=== PATIENT | female | born 1990 | race Caucasian/White ===

== ENCOUNTER 2023-03-09 21:33 | Outpatient (REF) | payer OTHER, SELFPAY ==
[2023-03-14 11:08] LABS: Age Gdln ACOG Testing Note (.); HPV Aptima Negative (Negative); IGP, Aptima HPV, rfx 16/18,45 Note (.)
== END 2023-03-09 21:34 | disposition home or self-care (01) ==
LOC: LAB 21:33
PROVIDERS: PCP Obstetrics & Gynecology; Visit Provider Obstetrics & Gynecology
DX: Z01.419 Encounter for gynecological examination (general) (routine) without abnormal findings (principal)
CPT/HCPCS: 87624; G0145

== ENCOUNTER 2023-03-16 12:02 | Outpatient (OUT) | payer OTHER, SELFPAY ==
--- NOTE | 2023-03-16 11:00 | US_ITS ---
The [address] [address] Patient Name: IDALIA MCKEON MRN: [id number] date: 1990 Sex: F Assigned Patient Location: [place] Current Patient Location: LAB Accession/Order Number: [id number] Exam Date: 03/16/2023 11:00 Report Date: 03/16/2023 20:29 At the request of: CHARLEY DE LA GARZA Procedure: US pelvis w/ transvaginal EXAMINATION: US pelvis w/ transvaginal HISTORY: PELVIC PAIN IUD LOCATION COMPARISON: No relevant comparison available. FINDINGS: Transabdominal and transvaginal images The uterus is normal in size, contour and echotexture measuring 8.7 x 4.5 x 4.8 cm. Anteverted, anteflexed. No focal myometrial mass The endometrium measures 6 mm, normal. Normal position of IUD The right ovary is normal in size, contour and echotexture measuring 2.0 x 1.7 x 3.1 cm. Color flow noted. Doppler could not be obtained The left ovary is normal in size, contour and echotexture measuring 1. 1.9 x 2.1 cm. Color flow. Doppler could not be obtained Limited exam due to patient body habitus IMPRESSION: Normal position of IUD Electronically authenticated by: JARRETT EATON Date: 03/16/2023 20:29
== END 2023-03-16 12:03 | disposition home or self-care (01) ==
LOC: US 12:02
PROVIDERS: PCP Obstetrics & Gynecology; Visit Provider Obstetrics & Gynecology
DX: R10.2 Pelvic and perineal pain (principal)
CPT/HCPCS: 76830; 76856

== ENCOUNTER 2023-05-31 08:22 | Outpatient (OUT) | payer OTHER, SELFPAY | END 2023-05-31 08:23 | disposition home or self-care (01) | PROVIDERS: PCP Nurse Practitioner Family; Visit Provider Obstetrics & Gynecology | DX: Z01.818 Encounter for other preprocedural examination (principal); R10.2 Pelvic and perineal pain; N92.0 Excessive and frequent menstruation with regular cycle; N93.9 Abnormal uterine and vaginal bleeding, unspecified ==

== ENCOUNTER 2023-06-09 06:11 | Day surgery (SDC) | payer OTHER, SELFPAY ==
[2023-05-31 09:10] VITALS: BP 121/81; PULSE 92; RESP 20; TEMP 36.5; O2SAT 97; BMI 56.9
[2023-06-09] VITALS (13 sets, daily range): BP systolic 134–149; BP diastolic 62–99; PULSE 69–95; RESP 8–20; TEMP 36.6–37; O2SAT 96–100; BMI 57.8
[2023-06-09 06:54] LABS: Basophils Percent Auto 0.5 % (0.2-2.0); Eosinophils Absolute Auto 0.2 10^3/uL (0.0-0.7); Eosinophils Percent Auto 3.3 % (0.9-7.0); Hematocrit 40.7 % (36.0-48.0); Hemoglobin 13.5 g/dL (12.0-16.0); Immature Granulocytes Abs Auto 0.02 10^3/uL (0.00-0.03); Immature Granulocytes Pct Auto 0.3 % (0.0-0.5); Lymphocytes Absolute Auto 1.7 10^3/uL (1.2-3.8); Lymphocytes Percent Auto 27.7 % (20.5-60.0); Mean Corpuscular HGB Conc 33.2 g/dL (29.9-35.2); Mean Corpuscular Hemoglobin 30.9 pg (26.7-34.0); Mean Corpuscular Volume 93.1 fL (81.0-99.0); Mean Platelet Volume 9.4 fL (9.5-13.5); Monocytes Absolute Auto 0.5 10^3/uL (0.3-0.8); Neutrophils Absolute Auto 3.6 10^3/uL (1.4-6.5); Neutrophils Percent Auto 60.2 % (43.0-75.0); Platelet Count 226 10^3/uL (150-450); Red Blood Count 4.37 10^6/uL (4.20-5.40); Red Cell Distribution Width 12.6 % (11.0-15.0)
[2023-06-09] MEDS: LACTATED RINGER'S SOLUTION 1,000 ML 50 ML IV (07:11)
[2023-06-09 07:21] LABS: HCG Quantitative <1 mIU/mL
--- NOTE | 2023-06-09 08:23 | PM.ONB ---
Brief Operative Note Date of procedure: 06/09/23 Pre-op diagnosis: aub, retained iud Post-op diagnosis: same as pre-op Procedure: NAME OF PROCEDURE: [ D&c hysteroscopy with removal of retained iud] PROCEDURE: The patient was taken back to the Operating Room where she was prepped and draped in normal sterile fashion after being placed under general anesthesia without difficulty. She was also placed in the dorsal lithotomy position. A weighted speculum was placed in the patient?s vagina. The anterior lip of the cervix was identified and grasped with a single tooth tenaculum. The patient?s uterus was then sounded roughly to [? 8] cm. The patient was then gently dilated using Hegar dilators. The hysteroscope was passed through the patient?s cervix into the uterus. Both ostia were identified. fluffy appearing endometrium. No gross evidence of malignancy, no gross evidence of polyps or fibroids. At that point, gentle curettage was performed until a gritty texture was noted. The endometrial curettings were sent out to pathology. The single tooth tenaculum was then removed from the patient's anterior lip of the cervix where excellent hemostasis was noted. All instruments were removed from the patient?s vagina. The patient tolerated the procedure well. Sponge, lap and needle counts were correct times two. The patient was taken to the Recovery Room in stable condition.Room in stable condition. Polyp forcep was used to remove iud without difficulty Anesthesia: ZAIRA Surgeon: Hernandez Gibson Estimated blood loss (mL): 5 Pathology: other (endometrial currettings) Condition: stable Disposition: floor
[2023-06-09] MEDS: LACTATED RINGER'S SOLUTION 1,000 ML 150 ML IV (08:40)
== END 2023-06-09 09:48 | disposition home or self-care (01) ==
PROVIDERS: PCP Nurse Practitioner Family; Visit Provider Obstetrics & Gynecology
PROC: (CPT 940; principal; 2023-06-09 07:30)
DX: R10.2 Pelvic and perineal pain (principal); N92.0 Excessive and frequent menstruation with regular cycle; N93.9 Abnormal uterine and vaginal bleeding, unspecified; J45.20 Mild intermittent asthma, uncomplicated; E28.2 Polycystic ovarian syndrome; E66.01 Morbid (severe) obesity due to excess calories; Z68.43 Body mass index [BMI] 50.0-59.9, adult; F41.8 Other specified anxiety disorders; Z30.432 Encounter for removal of intrauterine contraceptive device
CPT/HCPCS: 58301; 58558; 36415; 84702; 85025; 88305; J2704

== ENCOUNTER 2024-03-13 19:36 | Outpatient (REF) | payer OTHER, SELFPAY | END 2024-03-13 19:37 | disposition home or self-care (01) | LOC: LAB 19:36 | PROVIDERS: PCP Nurse Practitioner Family; Visit Provider Obstetrics & Gynecology | DX: Z01.419 Encounter for gynecological examination (general) (routine) without abnormal findings (principal) | CPT/HCPCS: 87624; 88175 ==

== ENCOUNTER 2025-03-21 12:28 | Outpatient (REF) | payer OTHER, SELFPAY ==
--- OUTSIDE RECORDS SUMMARY | 2020-02-14 05:08 | XMS_ITS | Continuity of Care Document ---
Author Organization [facility] Address [address] [place] [address] Phone Care Team Providers Care Waste Removalist Name Role Phone Pavlock DO, Max Unavailable Unavailable Allergies, Adverse Reactions, Alerts Substance Reaction Status Criticality risperidone Active No Information Medications Medication Instructions Dosage Effective Dates (start - stop) Status Comments propranolol 20 mg tablet take 1 tablet by oral route 2 times every day 20 MG - Active Monoject Safety Syringes use as directed to administer B12 IM - Active Sprintec (28) 0.25 mg-35 mcg tablet take 1 tablet by oral route every day 1.00 tablet - Active DOXEPIN HCL (unknown strength) take 1 capsule by oral route 3 times every day Not Available - Active viktor Vistaril 25 mg capsule - Active viktor Rexulti 2 mg tablet take 1 tablet by oral route every day 2 MG - Active omeprazole 40 mg capsule,delayed release take 1 capsule by oral route every day before a meal 40 MG - Active albuterol sulfate HFA 90 mcg/actuation Aerosol Inhaler inhale 2 puff by inhalation route every 4 - 6 hours as needed - Active Procedures Procedure Date OFFICE/OUTPATIENT VISIT, EST Resin Composite 3s; Posterior 7 Oral Hygiene Instruction Prophylaxis Adult Oral Hygiene Instruction Periodic Oral Eval Estab Patient 2016 OFFICE/OUTPATIENT VISIT, EST No Charge URINE TEST OFFICE/OUTPATIENT VISIT, EST Resin One Surface; Anterior Resin One Surface; Anterior Resin One Surface; Anterior Oral Hygiene Instruction OFFICE/OUTPATIENT VISIT, NEW Prophylaxis Adult Oral Hygiene Instruction Periodic Oral Eval Estab Patient 2016 Bitewings Four Films High Risk Prophylaxis Adult Periodic Oral Eval Estab Patient 2015 Resin Composite 2s; Posterior 5 Amalgam 4+ Surf Prim/perm Amalgam 2 Surf Prim/perm Limited Oral Eval Resin Composite 2s; Posterior 5 Prophylaxis Adult Intraoral-complete Series (bw) 15 Comp Oral Eval New/estab Patient 2014 OFFICE/OUTPATIENT VISIT, EST URINE TEST URINE TEST OFFICE/OUTPATIENT VISIT, EST URINE TEST OFFICE/OUTPATIENT VISIT, EST URINE TEST Condoms REMOVE INTRAUTERINE DEVICE Condoms INSERT INTRAUTERINE DEVICE Levonorgestrel iu contracept URINE TEST OFFICE/OUTPATIENT VISIT, EST [facility] SPECIMEN HANDLING (GC/CHLAMYDIA) Jun OFFICE/OUTPATIENT VISIT, EST URINE TEST Condoms OFFICE/OUTPATIENT VISIT, EST URINE TEST Condoms NEW FP MEDICAID [facility] SPECIMEN HANDLING (GC/CHLAMYDIA) Nov SMEAR, WET MOUNT, SALINE/INK URINE TEST Condoms Advance Directives Directive Yes / No Effective Date File Name No Information Encounters Encounter Description Practice Location Reason(s) For Visit Diagnoses Date Provider Providers Copied on Encounter [facility], [address] [place] [address], [place], [place], [id number] , [place] tel:[phone] [facility] No Information 8 0 Pavlock DO Max. [address] [place] [address], [id number], [place]. tel:[phone] OFFICE/OUTPA TIENT VISIT, EST [facility], [address] [place] [address], [id number] , [place] tel:[phone] [facility] dizziness (chief complaint)m eds (chief complaint)n euro (chief complaint)n ausea (chief complaint)f atigue (chief complaint) Body mass index (BMI) 50-59.9 , adultDizzinessH eadacheMorbid (severe) obesity due to excess calories 8 Marcelino Vanessa. [address] [place] [address], [id number], [place]. tel:[phone] [facility], [address] [place] [address], [id number] , tel:[phone] [facility] B/P follow up (chief complaint)B melidaton: (chief complaint) Chronic migraine w/o auraFatigueClas s 3 severe obesity due to excess calories without serious comorbidity with body mass index (BMI) of 50.0 to 59.9 in adultBody mass index (bmi) 50-59.9 , adult Mar-3 0- 8 Abiodun Esquivel. [address] [place] [address], [id number], [place]. tel:[phone] [facility], [address] [place] [address], [id number] , [place] tel:[phone] [facility] migraines (chief complaint)b ump (chief complaint)D ennison: (chief complaint) Morbid (severe) obesity due to excess caloriesBody mass index (BMI) 50-59.9 , adultChronic migraine w/o auraElevated blood-pressure reading, w/o diagnosis of htnSebaceous cyst 8 Francesca Sena. [address] [place] [address], [id number], [place]. tel:[phone] [facility], [address] [place], [place], [id number] , [place] tel: [phone] Dental Clinic Encounter for screening for dental disorders 7 [facility] Edward. [address] [place], [address], [place]. tel:[phone] [facility], [address] [place] [address], [id number] , [place] tel: [phone] Dental Clinic prophy (chief complaint) Encounter for screening for dental disorders 7 Carol Burger . [address] [place], [address], [place]. tel:[phone] [facility], [address] [place] [address], [id number] , [place] tel: [phone] [facility] weight management (chief complaint) Body mass index (BMI) 50-59.9 , adultMorbid (severe) obesity due to excess calories 7 Marcelino Vanessa. [address] [place] [address], [id number], [place]. tel:[phone] OFFICE/OUTPA TIENT VISIT, EST [facility], [address] [place], [place], [id number] , [place] tel: [phone] [facility] tired (chief complaint) Body mass index (BMI) 50-59.9 , adultMorbid (severe) obesity due to excess caloriesFatigue 7 Marcelino Vanessa. [address] [place], [place], [id number], [place]. tel:[phone] [facility], [address] [place] [address], [id number] , [place] tel:[phone] Dental Clinic filling (chief complaint) Encounter for screening for dental disorders 7 [facility] [place]. [address] [place], [address], [place]. tel:[phone] OFFICE/OUTPA TIENT VISIT, EST [facility], [address] [place], [place], [id number] , [place] tel: [phone] [facility] abd pain (chief complaint)A dipex (chief complaint) LLQ painEncounter for test 7 Marcelino Vanessa. [address] [place] [address], [id number], [place]. tel:[phone] [facility], [address] [place], [place], [id number] , [place] tel: [phone] [facility] Adipex (chief complaint) Body mass index (BMI) 50-59.9 , adultMorbid (severe) obesity due to excess calories 7 Marcelino Vanessa. [address] [place] [address], [id number], [place]. tel:[phone] [place] [address], [address] [place] [address], [id number] , [place] tel: [phone] Dental Clinic Filling (chief complaint) Encounter for screening for dental disorders 7 Gallo Martinez. [address] [place] [address], [id number], [place]. tel:[phone] OFFICE/OUTPA TIENT VISIT, NEW [facility], [address] [place], [place], [id number] , [place] tel: [phone] [facility] est care (chief complaint)w eight management (chief complaint) Body mass index (BMI) 50-59.9 , adultMorbid (severe) obesity due to excess calories 7 Marcelino Vanessa. [address] [place] [address], [id number], [place]. tel:[phone] [place] [address], [address] [place] [address], [id number] , [place] tel: [phone] Dental Clinic prophy (chief complaint) Encounter for screening for dental disorders 7 Gallo Michaudbo. [address] [place] [address], [id number], [place]. tel:[phone] [facility], [address] [facility] [place], [id number] , [place] tel: [phone] Dental Clinic prophy (chief complaint) Encounter for screening for dental disorders 6 Rose DDS Eduardo. [address] [place], [place], [id number], [place]. tel:[phone] [facility], [address] [place], [place], [id number] , [place] tel: [phone] Dental Clinic [facility] December. [address] [place], [place], [id number], [place]. tel:[phone] [facility], [address] [place] [address], [id number] , [place] tel: [phone] Dental Clinic Dental examination [facility] December. [address] [place], [place], [id number], [place]. tel:[phone] [facility], [address] [place], [place], [id number] , [place] tel: [phone] Dental Clinic Dental examination [facility] December. [address] [place], [place], [id number], [place]. tel:[phone] [facility], [address] [place], [place], [id number] , [place] tel: [phone] Dental Clinic Dental examination [facility] December. [address] [place], [place], [id number], [place]. tel:[phone] [facility], [address] [place], [place], [id number] , [place] tel: [phone] Dental Clinic Dental exam [facility] December. [address] [place], [place], [id number], [place]. tel:[phone] [facility], [address] [place] [address], [id number] , [place] tel:[phone] Dental Clinic Dental exam 5 Tadeo DMD December. [address], [place], [id number], [place]. tel:[phone] OFFICE/OUTPA TIENT VISIT, [facility], [address] [place], [place], [id number] , [place] tel: [phone] [facility] test (chief complaint) examination or test, positive result 3 [place] [facility] Killian. [address] [place], [place], [id number], [place]. tel:[phone] OFFICE/OUTPA TIENT VISIT, [facility], [address] [place], [place], [id number] , [place] tel: [phone] [facility] desires HCG quants (chief complaint) examination or test, negative result 3 Quincy Loco. [address], [place], [id number], [place]. tel:[phone] OFFICE/OUTPA TIENT VISIT, [facility], [address] [place], [place], [id number] , [place] tel: [phone] [facility] test (chief complaint) No Information 3 Fermin THOMAS Shakeel. [address], [place], [id number], [place]. tel:[phone] [facility], [address] [place], [place], [id number] , [place] tel: [phone] [facility] No Information 3 Lamp Beronica. [address] [place], [place], [id number], [place]. tel:[phone] [facility], [address] [place], [place], [id number] , [place] tel: [phone] [facility] No Information 2 Lamp Beronica. [address], [place], [id number], [place]. tel:[phone] OFFICE/OUTPA TIENT VISIT, [facility], [address] [place], [place], [id number] , [place] tel: [phone] [facility] No Information 4-201 2 Lamp Beronica. [address], [place], [id number], [place]. tel:[phone] OFFICE/OUTPA TIENT VISIT, [facility], [address] [place], [place], [id number] , [place] tel: [phone] [facility] No Information 1 2 Quincy Loco. [address], [place], [id number], [place]. tel:[phone] OFFICE/OUTPA TIENT VISIT, [facility], [address] [place], [place], [id number] , [place] tel: [phone] [facility] No Information 2 Visci DO Shakeel. [address] [place], [place], [id number], [place]. tel:[phone] [facility], [address], [place], [id number] , [place] tel: [phone] [facility] No Information 0201 2 Quincy Loco. [address] [place], [place], [id number], [place]. tel:[phone] Family History Family Member Type Diagnosis Age At Onset Father Problem (finding) asthma Father Problem (finding) Alive and well Mother Problem (finding) seizure disorder (Cause Of ) Mother Problem (finding) depression Father Problem (finding) hypercholesterolemia Mother Problem (finding) Obesity Problem (finding) Family history of heart disease Mother Problem (finding) Mental illness Payers Payer name Insurance type Covered republican ID [place](s) [employer] Medicaid [place] [id number] Medicaid Wrap - [employer] [place] [id number] Social History Type Description Quantity Date Captured Comments Alcohol Use Details Unknown Caffeine Use Details Unknown Tobacco Use Status No Information Smoking Status No Information Sex Female Sexual Orientation Straight or heterosexual Gender Identity Female Chief Complaint And Reason For Visit No Information Reason For Referral Reason For Referral No Information Plan Of Treatment Date Type Action Status Goal RLP. Due on due Goal PAP. Due on due Goal Influenza vaccine. Due on due Goal Tdap. Due on due Goal Lifestyle education regardin g diet completed Goal Influenza vaccine. Due on due Goal Tdap. Due on due Goal PAP. Due on due Goal RLP. Due on due Goal Influenza vaccine. Due on due Goal PAP. Due on due Goal Tdap. Due on due Goal RLP. Due on due Goal PAP. Due on due Goal RLP. Due on due Goal Tdap. Due on due Goal Influenza vaccine. Due on due Goal RLP. Due on due Goal Tdap. Due on due Goal PAP. Due on due Goal Influenza vaccine. Due on due Goal Tdap. Due on due Goal PAP. Due on due Goal RLP. Due on due Goal Influenza vaccine. Due on due Goal PAP. Due on due Goal RLP. Due on due Goal Tdap. Due on due Goal Influenza vaccine. Due on due Goal PAP. Due on due Goal Tdap. Due on due Goal RLP. Due on due Goal Influenza vaccine. Due on due Goal Tdap. Due on due Goal RLP. Due on due Goal Influenza vaccine. Due on due Goal PAP. Due on due Goal RLP. Due on due Goal Influenza vaccine. Due on due Goal PAP. Due on due Goal Tdap. Due on due Goal RLP. Due on due Goal Influenza vaccine. Due on due Goal PAP. Due on due Goal Tdap. Due on due Goal PAP. Due on due Goal Tdap. Due on due Goal Influenza vaccine. Due on due Goal RLP. Due on due Goal Depression screening. Due on due Goal Tdap. Due on due Goal PAP. Due on due Goal Influenza vaccine. Due on due Goal Td vaccine. Due on due Goal Tdap. Due on due Goal PAP. Due on due Goal Depression screening. Due on due Goal Tdap. Due on due Goal PAP. Due on due Goal HPV (1st). Due on due Goal Depression screening. Due on due Goal Td vaccine. Due on due Goal Depression screening. Due on due Goal Tdap. Due on due Goal HPV (). Due on due Goal Td vaccine. Due on due Goal Tdap. Due on due Goal Depression screening. Due on due Goal HPV (). Due on due Goal Td vaccine. Due on due Goal Td vaccine. Due on due Goal Depression screening. Due on due Goal HPV (1st). Due on due Goal Tdap. Due on due Goal PAP. Due on due Referral Ordered: Neurology (related to Chronic migraine w/o aura) ordered History Of Present Illness Encounter Date Complaint History Of Prese nt Illness meds Pt states is onl y taking propanolol once daily, pt was educated that we have prescribed it bid since october, pt states her bottle says only once daily. Will call pharmacy to verify they have correct rx. [place] neuro Pt is to see Dr. Leena Sylvester/neuro on 01/25/18. Candelaria nausea Additional infor mation: Pt states every time she eats she gets very nauseous and has had gall bladder out. Candelaria. fatigue Additional infor mation: Pt states she is tired all the time even if she gets 8 hrs of sleep. Labs were never reviewed with pt. Candelaria. dizziness Additional infor mation: Pt states has had dizziness daily x3 weeks. WEnt to ER and was given Antivert with no relief. Candelaria. Abiodun: 27 year old [place] female presents to clinic today to follow-up regarding BP. At last visit on 11/08/17, her BP was 134/91 via the machine and 125/95 manually. Today's BP is 128/87. Patient is a non-smoker. Hx of Cholecystectomy and Left wrist surgery for a ganglion cyst. Patient complains of headaches that have been going on for 2 years. Patient states they have been worsening in intensity and frequency over the past 2 months. Headaches can last all day and she states she is getting them at least 3 times a week and some times every day of the week. Patient points to bilateral temporals and around ethmoid sinuses when asked where her headaches occur. Patient complains of photophobia and phonophobia when these occurs. Patient has been taking propanolol for the past 6 weeks. She was off of this medication for 4 months prior to switchint doctors and being on it for 6 months prior to this. Also denies tinnitus or vision changes with headaches. Patient has also tried Excedrin migraines or Tylenol and states that these sometimes help, but not all of the time. Patient states the headaches come and go for no reasons and can come in the middle of the night when I'm sleeping. Patient states that she is also very fatigued when these headaches occur. She has had a sleep study done before for bariatric surgery that I will be going through and everything was fine with that. Patient started to see a neurologist but states she missed several appointments so she is not sure if she can be referred to one. Patient has not had any scans or additional testing done for these headaches. Denies any auras prior to headaches. Denies any fever, neck stiffness, or extremity numbness, tingling or weakness.Last Pap: 4 years ago. Has appointment in December. Has not had a period in 5 months and had an endometrial biopsy by her OBGYN. Mar-30-2018 B/P follow up Patient here for b/p follow up. Patient states she is still having headaches. Patient is also having breast tenderness and nausea. PT is negative. Patient just started control a little over a month ago. Patient states she has missed some. Patient is also requesting lab work because she is alway tired. Patient states this has been like this for several month. No other issues at this time.Purvi Starks. migraines Pt states has sands d migraines for years and states noticed they have been worsening over the last few months. Pt states used to take propanolol and when she switched drs it never got carried over. Candelaria Francesca: Going through bariatric program but still having cravings. Only surgery was cholecystectomy. Uses Albvuterol for asthma. Also on Rexulti for depression and seeing Dr. Ferreira. She states her last Pap smear was 2013. She is scheduled for an endometrial bx soon with her aerial applicator pilot. She is not a smoker. Propranalol did work for her migraines 20 mgm twice per day. She does not exercise regularly at this time. She is not a smoker. Getting headaches almost every day or every other day. bump Pt c/o bump unde r upper left arm near her armpit, states it was bigger yesterday but she squeezed it and some green drainage came out but its still sore. Pt states thinks she may have one starting on her thigh because it rubs and its sore. Candelaria prophy weight management Patient here t o discuss weight concerns. She is interested in bariatric surgery and has paperwork to be completed from [facility]. PURVI Schneider tired Patient has c/o feeling tired all the time. She was previously on Vitamin B12 injections through her previous provider but stopped since switching providers. RLP completed. -Ramiro LOJA filling continue with nehemias hernández abd pain Patient has c/o abd pain, started 3 days ago. Pain is intermittent, lasting approx 1 minute. Described as sharp and dull. Starts in the middle of her abd and radiates around her sides. States the noticed it while swimming, she stopped swimming which stopped the pain but it came back intermittent throughout the day. Denies any bowel or bladder issues. Patient told physician after nurse left that she had similar pains when she was with her daughter. Patient requesting PT test. Patient has irreg menses and is unsure of LMP, states maybe the month of January. Two tests done for confirmation as very faint positive line showing on both. Patient instructed to follow up with [facility] who states is in [place] for more confirmatory testing. -Ramiro LOJA Adipex Patient also due for Adipex #3 but she wanted to make sure she was able to continue on medication with stomach pain. -Ramiro LOJA Adipex Patient here for Adipex, start 01/22/17 at 295lb. Rx #2 today. Patient states she see's a certified personal trainer 2 times a week and walked twice a week also. -Ramiro LOJA Filling Filling est care Patient here to establish care, she was previously seeing Dr. Willis but would like to switch. She see's [facility] for her depression medication. Denies any concerns at this time. -Ramiro LOJA weight management Patient states she has a hard time losing weight, she just started with a certified personal trainer a few weeks ago. States she just had labs drawn at [facility] approx 1 month ago. A1C 5.3, TSH 3.91. -Ramiro LOJA prophy prophy Functional Status Date Functional Assessmen t No Information Instructions Date Instruction Additional Infor mation Lifestyle education regarding di et Related to Body mass index (BMI) 50-59.9 , adult Giving encouragement to exercise Related to Body mass index (BMI) 50-59.9 , adult Assessments Type Assessment Date No Information Patient Care Teams Name Effective Dates (start - stop) Status Members No Information
--- OUTSIDE RECORDS SUMMARY | 2024-08-28 09:30 | XMS_ITS ---
Author Organization [facility] Address [address] [place] [address] Care Team Providers Care Sales Representative Jewelry Name Role Phone Roxana Toma Primary Care Provider Sarika Youngblood Unavailable [phone] Allergies Allergen (clinical drug ingredient) Drug/Non Drug Allergy documented on EMR Reaction Allergy Type Onset Date Status risperidone Risperdal jittery, throat closure, shaking Drug Allergy Active REASON FOR VISIT checkup-UG Medications Medication SIG (Take, Route, Frequency, Duration) Notes Start Date End Date Status lamoTRIgine 25 MG TAKE 1 TABLET BY [facility] ONCE DAILY UNTIL 07/08/23 & THEN TAKE 2 TABS UNTIL NEXT APPOINTMENT DIRECTED; Duration: 30 Not-Taking Paliperidone ER 6 MG 1 tablet in the mor anne Orally Once a day 04/08/2023 Not-Taking Lexapro 5 MG 1 tablet Orally Once a day; Duration: 30 day(s) 03/02/2023 Not-Sincere ing ARIPiprazole 2 MG TAKE 1 TABLET BY GLEN[facility] TH IN THE MORNING Oral; Duration: 30 Not-Taking Sertraline HCl 100 MG TAKE 1 TABLET BY M OUTH IN THE MORNING Oral; Duration: 30 Not-Taking Lurasidone HCl 40 MG 1 tablet in the gilberto anne with food Orally Once a day; Duration: 30 days 08/09/2023 Not-Takin g Viibryd 20 MG 1 tablet with food Orally Once a day; Duration: 30 day(s) 03/09/2023 Not-Taking Venlafaxine HCl ER 75 MG 1 capsule with food Orally Once a day; Duration: 30 day(s) 03/06/2024 Not-Taking Phentermine HCl 37.5 MG 1 tablet before breakfast Orally Once a day; Duration: 30 days 01/09/2024 Not-Takin g Magnesium Oxide Not- Taking hydrOXYzine HCl 25 MG 1 tablet as needed Orally 3 times a day as needed for anxiety; Duration: 30 days 03/13/2024 Not-Taking Invega Sustenna 234 MG/1.5ML as directed Intramuscular once a maonth 08/30/2023 Not-Taking Venlafaxine HCl ER 75 MG 1 capsule with food Orally Once a day; Duration: 30 days 01/11/2024 Not-Taking DULoxetine HCl 30 MG 1 capsule Orally On ce a day; Duration: 30 days 03/28/2024 Not-Takin g busPIRone HCl 10 MG 1 tablet Orally Twic a day; Duration: 30 days Not-Takin g Omeprazole 40 MG TAKE 1 CAPSULE BY [facility] ONCE DAILY 30 MINUTES BEFORE MORNING MEAL; Duration: 60 Not-Taking FLUoxetine HCl 40 MG 1 capsule Orally On ce a day; Duration: 30 days 04/03/2024 Not-Takin g OLANZapine 5 MG 1 tablet every night and once a day as needed for anxiety Orally as directed; Duration: 30 days 07/24/2024 Active Multi Complete - as directed Orally Not-Taking Pulmicort Flexhaler Not-Taking Ventolin HFA 108 (90 Base) MCG/ACT 2 puffs as needed Inhalation every 4 hrs 06/25/2015 Active Invega Sustenna 234 MG/1.5ML 1.5 mL Intramuscular; Duration: 30 days 07/24/2024 Active Encounters Encounter Location Date Provider Diagnosis [facility] [address] [place] [address] 08/28/2024 Tayla Tom Plan Of Treatment No Information Progress Notes * IDALIA MCKEONDOB:[birth year] (35 yo F)Acc No.[id number]:08/28/2024 Progress Notes Patient: Rachael PIKEIDALIA Appointment Provider: Allen TOM DO :1990 A ge:34 Y S ex:Female Date:08/28/2024 Address:[address] [place], [place] [id number] Check In:01:27 PM EST Subjective: * Chief Complaints: * 1 . checkup-UG. * Medical History: A sthma, Hypertension, Chronic depression, Anxiety disorder. * Surgical History: c yst removal-wrist x2 , cholecystectomy . * [place]ization/Major Diagno stic [place] [facility] [place] , Do flower . * Family History: F ather: , asthma. M other: alive, Mom adopted, had paranoid schizophrenia. P aternal Grand Father: [place]. 2 brother(s) - healthy. 1 son(s) , 2 daughter(s) - healthy. . * Social History: N o smoking, no alcohol, no illicit drugs. * Medications: T aking Ventolin HFA 108 (90 Base) MCG/ACT Aerosol Solution 2 puffs as needed Inhalation every 4 hrs , Taking Invega Sustenna 234 MG/1.5ML Suspension Prefilled Syringe 1.5 mL Intramuscular , Taking OLANZapine 5 MG Tablet 1 tablet every night and once a day as needed for anxiety Orally as directed , Not-Taking/PRN Multi Complete - Capsule as directed Orally , Not-Taking/PRN Pulmicort Flexhaler , Not-Taking/PRN Omeprazole 40 MG Capsule Delayed Release TAKE 1 CAPSULE BY MOUTH ONCE DAILY 30 MINUTES BEFORE MORNING MEAL , Not-Taking/PRN FLUoxetine HCl 40 MG Capsule 1 capsule Orally Once a day , Not-Taking/PRN hydrOXYzine HCl 25 MG Tablet 1 tablet as needed Orally 3 times a day as needed for anxiety , Not-Taking/PRN Invega Sustenna 234 MG/1.5ML Suspension Prefilled Syringe as directed Intramuscular once a maonth , Not-Taking/PRN Venlafaxine HCl ER 75 MG Capsule Extended Release 24 Hour 1 capsule with food Orally Once a day , Not-Taking/PRN DULoxetine HCl 30 MG Capsule Delayed Release Particles 1 capsule Orally Once a day , Not-Taking/PRN busPIRone HCl 10 MG Tablet 1 tablet Orally Twice a day , Not-Taking/PRN Venlafaxine HCl ER 75 MG Capsule Extended Release 24 Hour 1 capsule with food Orally Once a day , Not-Taking/PRN Phentermine HCl 37.5 MG Tablet 1 tablet before breakfast Orally Once a day , Not-Taking/PRN Magnesium Oxide , Not-Taking/PRN Lurasidone HCl 40 MG Tablet 1 tablet in the evening with food Orally Once a day , Not-Taking/PRN Viibryd 20 MG Tablet 1 tablet with food Orally Once a day , Not-Taking/PRN lamoTRIgine 25 MG Tablet TAKE 1 TABLET BY MOUTH ONCE DAILY UNTIL 07/08/23 & THEN TAKE 2 TABS UNTIL NEXT APPOINTMENT DIRECTED , Not-Taking/PRN Paliperidone ER 6 MG Tablet Extended Release 24 Hour 1 tablet in the morning Orally Once a day , Not-Taking/PRN Lexapro 5 MG Tablet 1 tablet Orally Once a day , Not-Taking/PRN ARIPiprazole 2 MG Tablet TAKE 1 TABLET BY MOUTH IN THE MORNING Oral , Not-Taking/PRN Sertraline HCl 100 MG Tablet TAKE 1 TABLET BY MOUTH IN THE MORNING Oral * Allergies: R isperdal: jittery, throat closure, shaking - Allergy. Objective: * Vitals: Assessment: Plan: * Treatment: * Images: * Electronic signature of Samina Tom DO on 03/21/2025 at 09:02 AM EDT Sign off status: Pending * Appointment Provider: Allen TOM DO Date: 10/29/2023 Generated for Mohini aguilar/Teresa/Talyaitting on: 0 03/21/2025 09:02 AM EDT
--- OUTSIDE RECORDS SUMMARY | 2024-12-11 10:14 | XMS_ITS ---
Author Organization [facility] [place] Address [address] [place] [address] Care Team Providers Care Advanced Registered Nurse Name Role Phone Jeanmarie Gutierrez DO Primary Care Provider Unavail able Eliud Dinesh Unavailable [phone] REASON FOR VISIT Pulmonary Clearance-[facility] Encounters Encounter Location Date Provider Diagnosis [facility] [address] [place] [address] 12/11/2024 Dinesh Kline Plan Of Treatment Next Appt Details Provider Name:Dinesh Kline, 02/04/2026 09:30:00 AM, [address] [place], [address], Progress Notes * Idalia KAM MDOB: (34 yo F)Acc No.[id number]:12/11/2024 Patient: Rachael Idalia PIKE :1990 A ge:34 Y S ex:Female Address:[address] [place] [address], [phone] * true * Date: Generated for Printi ng/Faxing/eTransmitting on: 0 03/21/2025 12:37 PM EDT
--- OUTSIDE RECORDS SUMMARY | 2025-01-02 05:00 | XMS_ITS ---
Author Organization [facility] [place] Address [address] [place] [address] Care Team Providers [employer] Name Role Phone LynnvilleJeanmarie pineda DO Primary Care Provider Unavail able Dinesh Kline Unavailable [phone] Allergies Allergen (clinical drug ingredient) Drug/Non Drug Allergy documented on EMR Reaction Allergy Type Onset Date Status risperidone RisperDAL Numbness Drug Allergy Activ e REASON FOR VISIT Pulmonary Clearance/HALEIGH/Asthma Medications Medication SIG (Take, Route, Fr equency, Duration) Notes Start Date End Date Status Mirena (52 MG) 20 MCG/DAY as directed Intrauterine Act justice Omeprazole 40 MG 1 capsule 30 minutes before morning meal Orally Once a day Active Vitamin D3 50 MCG (2000 UT) 1 capsule Orally Once a day Active Ventolin HFA 108 (90 Base) MCG/ACT 2 puffs as needed for SOB Inhalation every 4 hrs for 30 days Active FLUoxetine HCl 20 MG Oral for 30 Days Active Invega Sustenna 234 MG/1.5ML INJECT 234MG INTRAMUSCULARLY EVERY 30 DAYS Intramuscular for 30 Days Active metFORMIN HCl ER 500 MG TAKE 1 TABLET BY MOUTH IN THE EVENING WITH MEALS -- DO NOT CRUSH, CHEW OR SPLIT Oral for 30 Days Active Social History Tobacco Use: Social History Observation Description Date Details (start date - stop date) Never Smoker NA - NA Tobacco Control (Standard) Question Answer Notes Tobacco use: Nonsmoker Vital Signs Temperature 96.8 degrees Fahrenheit 01/03/20 25 Blood pressure systolic 136 mm Hg 01/03/20 25 Blood pressure diastolic 92 mm Hg 025 Heart Rate 66 /min 01/02/2025 Respiratory Rate 18 /min 01/02/2025 Height 64 in 01/02/2025 Weight 331.2 lbs 01/02/2025 BMI 56.84 kg/m2 01/02/2025 Oximetry 96 % 01/02/2025 Encounters Encounter Location Date Provider Diagnosis Pulmonary Medicine [address] [address] 01/02/2025 Dinesh Eliud Encounter for preprocedural respiratory examination Z01.811 ; Obstructive sleep apnea G47.33 ; Mild persistent asthma, uncomplicated J45.30 and Obesity, morbid, BMI 50 or higher E66.01 Assessments Encounter Date Diagnosis (ICD Code) Assessment Notes Treatment Notes Treatment Clinical Notes Section Notes 01/02/2025 Encounter for preprocedural respiratory examination (ICD-10 - Z01.811) Patient in beginning stages of weight loss surgery with Dr. Eduarda Hugo, either gastric sleeve vs. Claudia-en-Y. She is seeking pulmonary pre-operative evaluation. From an asthma standpoint, she is well controlled which I do not anticipate any issues from that standpoint. However, she is simply not using her CPAP. PAP compliance is typically a requirement for weight loss surgery, which this patient has not made any effort over the past 8 months to do, even after I adjusted pressures for her. She also has history of non-compliance with F/U (2 no shows). Explained that compliance is vital for success, as she will have to adopt an entirely new lifestyle - if she cannot F/U with PAP therapy, or even office visits, this can be construed as a sign she will not be compliant with the F/U necessary after weight loss surgery. Given lack of effort using CPAP, I cannot state she is cleared for an elective surgery such as this. She was given 1 month to demonstrate compliance with her CPAP with strategies provided to improve comfort with the mask, etc. She will F/U in 1 month to review compliance - if she is not compliant, then I cannot in good conscience clear her for this surgery. 01/02/2025 Obstructive sleep apnea (ICD-10 - G47.33) Wxpi-zu-zsaf encounter performed with the patient to document continued need for PAP therapy. [place]PSG 07/14/2021 [place] [place] - AHI: 8.7; REM-AHI: 47.6 -Split-night 02/07/2023 ([facility]) - AHI: 18 -Compliance reviewed 90 days prior to 12/24/2024-Total days used: ZERO-Total of all days >4 hours of use: N/A-Current mode & pressures: AirSense 11 Autoset auto-CPAP [id number] AHI: N/A-Air leak 95th percentile: N/A-Mask/harness fitting: States there is a leak when laying on side-Sleep quality: Poor, as she is not using PAP-Daytime hypersomnolence: Present-Recommen dations: Persistently non-compliant with CPAP, even after I adjusted the pressures last visit (05/08/2024) from straight CPAP [id number] to auto-CPAP [id number]... She no showed' for her 3-month F/U compliance on 08/08/2024, which we ultimately had to send a letter to her home notifying her of the missed appointment. We only heard from her on 12/11/2024 when she was seeking pulmonary clearance for her gastric weight loss procedure. She was asked at that time if she were using her CPAP, which she answered to my MA Not really. Even after that conversation, she did not restart the CPAP. She claims that she began using the CPAP over the past 2 days and said she did okay on it... I cannot adjust the pressures further at this point. She complains about the mask, not becoming acclimated to it. I suggested the patient wear the CPAP during the daytime while awake, such as when watching TV. That way, she can see how it feels, adjust straps as necessary, etc. instead of fighting it at bedtime. She has both full facial and nasal pillows. She is to try the mask which fits better and use the PAP. Discussed the tubing has a lot of length and slack, so she should not use fear of knocking off the night stand as a major concern. F/U 1 month to document compliance. 01/02/2025 Mild persistent asthma, uncomplicated (ICD-10 - J45.30) She has been doing well off Pulmicort over the past ~year. Rare albuterol use. No need to restart a maintenance inhaler at this time. 01/02/2025 Obesity, morbid, BMI 50 or higher (ICD-10 - E66.01) Patient is looking into weight loss surgery (gastric sleeve vs. Claudia-en-Y). Plan Of Treatment Medication Medication Name Sig Start Date Stop Date Notes Ventolin HFA 108 (90 Base) MCG/ACT 2 puffs as needed for SOB Inhalation every 4 hrs for 30 days Treatment Notes Assessment Notes Encounter for preprocedural respiratory examination Patient in beginning stages of weight loss surgery with Dr. Eduarda Hugo, either gastric sleeve vs. Claudia-en-Y. She is seeking pulmonary pre-operative evaluation. From an asthma standpoint, she is well controlled which I do not anticipate any issues from that standpoint. However, she is simply not using her CPAP. PAP compliance is typically a requirement for weight loss surgery, which this patient has not made any effort over the past 8 months to do, even after I adjusted pressures for her. She also has history of non-compliance with F/U (2 no shows). Explained that compliance is vital for success, as she will have to adopt an entirely new lifestyle - if she cannot F/U with PAP therapy, or even office visits, this can be construed as a sign she will not be compliant with the F/U necessary after weight loss surgery. Given lack of effort using CPAP, I cannot state she is cleared for an elective surgery such as this. She was given 1 month to demonstrate compliance with her CPAP with strategies provided to improve comfort with the mask, etc. She will F/U in 1 month to review compliance - if she is not compliant, then I cannot in good conscience clear her for this surgery. Obstructive sleep apnea Rxqb-yz-zeuz encounter performed with the patient to document continued need for PAP therapy. -PSG 07/14/2021 ([facility] [place] - AHI: 8.7; REM-AHI: 47.6 -Split-night 02/07/2023 ([facility]) - AHI: 18 -Compliance reviewed 90 days prior to 12/24/2024-Total days used: ZERO-Total of all days >4 hours of use: N/A-Current mode & pressures: AirSense 11 Autoset auto-CPAP [id number] AHI: N/A-Air leak 95th percentile: N/A-Mask/harness fitting: States there is a leak when laying on side-Sleep quality: Poor, as she is not using PAP-Daytime hypersomnolence: Present-Recommendations: Persistently non-compliant with CPAP, even after I adjusted the pressures last visit (05/08/2024) from straight CPAP [id number] to auto-CPAP [id number]... She no showed' for her 3-month F/U compliance on 08/08/2024, which we ultimately had to send a letter to her home notifying her of the missed appointment. We only heard from her on 12/11/2024 when she was seeking pulmonary clearance for her gastric weight loss procedure. She was asked at that time if she were using her CPAP, which she answered to my MA Not really. Even after that conversation, she did not restart the CPAP. She claims that she began using the CPAP over the past 2 days and said she did okay on it... I cannot adjust the pressures further at this point. She complains about the mask, not becoming acclimated to it. I suggested the patient wear the CPAP during the daytime while awake, such as when watching TV. That way, she can see how it feels, adjust straps as necessary, etc. instead of fighting it at bedtime. She has both full facial and nasal pillows. She is to try the mask which fits better and use the PAP. Discussed the tubing has a lot of length and slack, so she should not use fear of knocking off the night stand as a major concern. F/U 1 month to document compliance. Mild persistent asthma, uncomplicated She has been doing well off Pulmicort over the past ~year. Rare albuterol use. No need to restart a maintenance inhaler at this time. Obesity, morbid, BMI 50 or higher Patient is looking into weight loss surgery (gastric sleeve vs. Claudia-en-Y). Next Appt Details Follow Up: 1 Month, Reason: HALEIGH - CPAP compliance Provider Name:Dinesh Kline, 02/04/2026 09:30:00 AM, [address] [place], [address], Procedure Notes * Category Sub-Category Detail Notes 16 Channel overnight polysomonography (PSG) Supervised 02/08/2023 - [facility] (split-night )-AHI 181 - [facility]-AHI 8.7-OES-ybncww AHI 47.6 PFT Data: 06/10/2022-FEV1/F VC: 86%-FEV1: 85%-FVC: 82%-No bronchodilator administered-RV: 78%-T%-DLCO: 123%-Flow-volume loop: Mild restriction03/21/2020-FEV1/FVC: 89%-FEV1: 85%-FVC: 81%-Bronchodilator response: Only positive in SCZ27-36%-RV: 98%-T%-DLCO: 114%07/16/2015-FEV1/FVC: 81% -FEV1: 83%-FVC: 82%-QWK45-90%: 75%-Bronchodilator response: None-RV: 78%-T%-DLCO: 85% Progress Notes * Idalia KAM MDOB: (34 yo F)Acc No.[id number]:01/02/2025 Follow Up Patient: Rachael PIKE Chazehra Felipe Provider: Jean Pierre Kline DO :1990 A ge:34 Y S ex:Female Date:01/02/2025 Address:[address] [place] [id number] Pcp:Jeanmarie Gutierrez, Check In:09:13 AM ESTCheck O ut:09:11 AM EST Subjective: * Chief Complaints: * P ulmonary Clearance/HALEIGH/Asthma * HPI: E pworth Sleepiness Scale: PRE-OPERATIVE PULMONARY EVALUATION Patient is here for pre-op pulm eval for proposed gastric surgery. She is seeing Dr. Eduarda Hugo @ [facility]. Proposed surgery is gastric sleeve vs. Claudia-en-Y. P atient is seen here for asthma and HALEIGH. Last visit here was 05/08/2024. Asthma: Patient's asthma has been well-controlled, remaining off her ICS inhaler for some time now.� Albuterol use is rare - has only required it 1-2 times since last visit. No urgent care/ER visits for her breathing. HALEIGH: She has an issue with compliance, both with F/U ( no showed for prior visit 08/08/2024 and 12/28/2022) and PAP use. Prior visit 05/08/2024, she had z erocompliance with her CPAP. She complained that her mask did not fit, and was concerned about the pressures (straight CPAP [id number]). I changed her settings to an auto-CPAP [id number]. She stated that she did not try the CPAP after the changes I made. This is confirmed from compliance data from 12/24/2024 - z lisetteo radha ompliance for the 90 days prior to this date. She states it is the mask now, I just cannot get used to it. She then says she is concerned if she tosses and turns, she will pull the PAP off the night stand by her bed. I educated the patient that the tubing is quite long with enough slack to account for movement during sleep. MA Intake Comments:. [place] Sleepiness Scale C khadijah of dozing while sitting and reading:�2 - Moderate Chance C khadijah of dozing while watching TV: 2 - Moderate Chance C khadijah of dozing while sitting in a public place: 0 - Never C khadijah of dozing as a passenger in a car for an hour without a break: 0 - Never C khadijah of dozing while lying down in the afternoon to rest: 3 - High Chance C khadijah of dozing while sitting and talking to someone: 0 - Never C khadijah of dozing while sitting quietly after lunch: 1 - Slight Chance C khadijah of dozing in a stopped car for a few minutes in traffic: 0 - Never T OTAL SCORE: 8 Patient presents for Pulmonary Clearance prior to a gastric bypass by Dr.Sarah Hugo at [facility]. Patient is not currently scheduled for a date at this time. Patient admits to not being compliant with her PAP. DME:[facility]. Patient has a hard time with her mask. Patient denies any issues with her breathing.today. Patient reports rare albuterol use. * ROS: G eneral/Constitutional: Fever or sweats d enies. C hange of appetite d enies. C hills d enies. W eight Change d enies. H EENT: Dry mouth d enies. S ore throat d enies. O ral Ulcers d enies. P ost Nasal Drip D enies. C ongestion D enies. H oarseness�Denies. C ardiovascular: Tachycardia d enies. C hest pain d enies. P alpitations d enies. R espiratory: Chest tightness d enies. P leurisy D enies. D yspnea d enies. C ough d enies. H emoptysis d enies. W heezing d enies.� G astrointestinal: Acid Reflux/GERD/Heartburn d enies. D ysphagia d enies. M usculoskeletal: Arthralgias/joint pain D enies. S kin: Easy bruising d enies. R caleb d enies. � N eurologic: Seizures d enies. T remor d enies. H ematology: Abnormal Bleeding d enies. P sychiatric: Anxiety d enies. * Active Problem List J45.30 Mild persistent asth ma, uncomplicated Modified On:05/10/2023/U Status:confirmed E66.01 Morbid obesity Modified On:05/10/2023U Status:confirmed G47.33 Obstructive sleep ap blaine Modified On:05/10/2023/U Status:confirmed E66.01 Obesity, morbid, BMI 50 or higher Modified On:05/10/2023U Status:confirmed * Medical History: * Surgical History: C holecystectomy dilatation and curettage loop electrosurgical excision procedure (LEEP) Right Foot Surgery carpal tunnel release Left Heel Spur * Hospitalization/Major Diagno stic Procedure: D enies Past Hospitalization * Family History: F ather: asthma, blood clot, asthma, diagnosed with Unspecified essential hypertension. M other: bipolar, depression, diagnosed with Unspecified essential hypertension. P aternal Grandmother: asthma, diagnosed with Other malignant neoplasm of unspecified site, Diabetes mellitus without mention of complication, type II or unspecified type, not stated as uncontrolled, Unspecified essential hypertension. M aternal Grandfather: asthma, diagnosed with Unspecified essential hypertension, Unspecified heart disease. M aternal Grandmother: asthma, diagnosed with Unspecified essential hypertension. P aternal Grandfather: diagnosed with Unspecified heart disease. * Social History: T obacco Use: T obacco Control (Standard) T obacco use: N onsmoker Electronic Cigarette use C urrent user N o M iscellaneous: C affeine: more than 4 cups per day. Occupation O ccupation: W orks full-time Hotel Pets: Rabbit. D rugs/Alcohol: D rugs H ave you used drugs other than those for medical reasons in the past 12 months? N o D oes the Patient have a History of Drug Abuse in the Past? N o Caffeine I ntake: m ore than 4 cups per day Soda Do you drink alcohol?: Yes, Socially. Do you smoke marijuana?: Denies. * Medications: T akingFLUoxetine HCl 20 MG Capsule Oral Invega Sustenna(Paliperidone Palmitate ER) 234 MG/1.5ML Suspension Prefilled Syringe INJECT 234MG INTRAMUSCULARLY EVERY 30 DAYS Intramuscular metFORMIN HCl ER 500 MG Tablet Extended Release 24 Hour TAKE 1 TABLET BY MOUTH IN THE EVENING WITH MEALS -- DO NOT CRUSH, CHEW OR SPLIT Oral Mirena (52 MG)(Levonorgestrel) 20 MCG/DAY Intrauterine Device as directed Intrauterine Omeprazole 40 MG Capsule Delayed Release 1 capsule 30 minutes before morning meal Orally Once a day Ventolin HFA(Albuterol Sulfate HFA) 108 (90 Base) MCG/ACT Aerosol Solution 2 puffs as needed for SOB Inhalation every 4 hrs Vitamin D3 50 MCG (1999 UT) Capsule 1 capsule Orally Once a day Taking FLUoxetine HCl 20 MG Capsule Oral Taking Invega Sustenna(Paliperidone Palmitate ER) 234 MG/1.5ML Suspension Prefilled Syringe INJECT 234MG INTRAMUSCULARLY EVERY 30 DAYS Intramuscular Taking metFORMIN HCl ER 500 MG Tablet Extended Release 24 Hour TAKE 1 TABLET BY MOUTH IN THE EVENING WITH MEALS -- DO NOT CRUSH, CHEW OR SPLIT Oral Taking Mirena (52 MG)(Levonorgestrel) 20 MCG/DAY Intrauterine Device as directed Intrauterine Taking Omeprazole 40 MG Capsule Delayed Release 1 capsule 30 minutes before morning meal Orally Once a day Taking Ventolin HFA(Albuterol Sulfate HFA) 108 (90 Base) MCG/ACT Aerosol Solution 2 puffs as needed for SOB Inhalation every 4 hrs Taking Vitamin D3 50 MCG (2000 UT) Capsule 1 capsule Orally Once a day DiscontinuedbusPIRone HCl 7.5 MG Tablet Oral LaMICtal(lamoTRIgine) 150 MG Tablet 1 tablet Orally metFORMIN HCl ER 500 MG Tablet Extended Release 24 Hour Oral Paliperidone ER 6 MG Tablet Extended Release 24 Hour TAKE 1 TABLET BY MOUTH IN THE MORNING FOR 30 DAYS Oral Vilazodone HCl 20 MG Tablet Oral Vitamin B12 1000 MCG Tablet Extended Release 1 tablet Orally Once a day Medication List reviewed and reconciled with the patientDiscontinued busPIRone HCl 7.5 MG Tablet Oral Discontinued LaMICtal(lamoTRIgine) 150 MG Tablet 1 tablet Orally Discontinued metFORMIN HCl ER 500 MG Tablet Extended Release 24 Hour Oral Discontinued Paliperidone ER 6 MG Tablet Extended Release 24 Hour TAKE 1 TABLET BY MOUTH IN THE MORNING FOR 30 DAYS Oral Discontinued Vilazodone HCl 20 MG Tablet Oral Discontinued Vitamin B12 1000 MCG Tablet Extended Release 1 tablet Orally Once a day Medication List reviewed and reconciled with the patient * Allergies: R isperDAL: Numbness - Allergyno[Allergies Verified] Objective: * Vitals: W t:331.2lbs, Ht: 64 in, BP:sittin/92mm Hg, Temp:Forehead:96.8F, HR:66/min, RR:18/min, BMI:56.84Index, Oxygen sat %:Room Air:96%, Ht-cm: 162.56 cm, Wt-k.23 kg. * Examination: E xam: GENERAL APPEARANCE: D oes not appear to be in any distress.� Morbidly obese. Skin N ormal. Mouth P ink and moist. Oropharynx/Tongue M allampati Class III. Macroglossia., Tongue ridging. Trachea M idline. Chest N ormal. Respiratory Normal M ovements, E ffort N ormal. Auscultation B reath sounds remain diminished but clear without wheezes, crackles, or rhonchi. Cardiac R egular rate and rhythm. Gastrointestinal E xcessive abdominal adiposity. Vascular N o edema. Musculoskeletal N ormal posture. Neurological F ocal, intact. Psychiatric A lert and oriented x3. Mentation/Cognition N ormal. Assessment: * Assessment: 1. E ncounter for preprocedural respiratory examination - Z01.811 (Primary) 2 .�Obstructive sleep apnea - G47.33 3 . M ild persistent asthma, uncomplicated - J45.30 4 . O besity, morbid, BMI 50 or higher - E66.01 Plan: * Treatment: 2. O bstructive sleep apnea Notes: Eyrq-vs-bgan encounter performed with the patient to document continued need for PAP therapy. -PSG 07/14/2021 ([facility] [place] - AHI: 8.7; REM-AHI: 47.6 -Split-night 02/07/2023 ([facility]) - AHI: 18 -Compliance reviewed 90 days prior to 12/24/2024-Total days used:ZERO-Total of all days >4 hours of use:N/A-Current mode & pressures: AirSense 11 Autoset auto-CPAP [id number] AHI:N/A-Air leak 95th percentile:N/A-Mask/harness fitting: States there is a leak when laying on side-Sleep quality: Poor, as she is not using PAP-Daytime hypersomnolence: Present-Recommendations: Persistently non-compliant with CPAP, even after I adjusted the pressures last visit (05/08/2024) from straight CPAP [id number] to auto-CPAP [id number]... She no showed' for her 3-month F/U compliance on 08/08/2024, which we ultimately had to send a letter to her home notifying her of the missed appointment. We only heard from her on 12/11/2024 when she was seeking pulmonary clearance for her gastric weight loss procedure. She was asked at that time if she were using her CPAP, which she answered to my MA Not really. Even after that conversation, she did not restart the CPAP. She claims that she began using the CPAP over the past 2 days and said she did okay on it... I cannot adjust the pressures further at this point. She complains about the mask, not becoming acclimated to it. I suggested the patient wear the CPAP during the daytime while awake, such as when watching TV. That way, she can see how it feels, adjust straps as necessary, etc. instead of fighting it at bedtime. She has both full facial and nasal pillows. She is to try the mask which fits better and use the PAP. Discussed the tubing has a lot of length and slack, so she should not use fear of knocking off the night stand as a major concern. F/U 1 month to document compliance. 3. M ild persistent asthma, uncomplicated Refill Ventolin HFA Aerosol Solution, 108 (90 Base) MCG/ACT, 2 puffs as needed for SOB, Inhalation, every 4 hrs, 30 days, 1 each, Refills 12. Notes: She has been doing well off Pulmicort over the past ~year. Rare albuterol use. No need to restart a maintenance inhaler at this time. 4. O besity, morbid, BMI 50 or higher Notes: Patient is looking into weight loss surgery (gastric sleeve vs. Claudia-en-Y). * Procedures: 1 6 Channel overnight polysomonography (PSG): Supervised 02/08/2023 - [facility] (split-night) -AHI 18 07/14/2021 [place] [facility] [place]AHI 8.7 -REM-supine AHI 47.6. P FT: Data: 06/10/2022 -FEV1/FVC: 86% -FEV1: 85% -FVC: 82% -No bronchodilator administered -RV: 78% -T% -DLCO: 123% -Flow-volume loop: Mild restriction 03/21/2020 -FEV1/FVC: 89% -FEV1: 85% -FVC: 81% -Bronchodilator response: Only positive in MEE03-29% -RV: 98% -T% -DLCO: 114% 07/16/2015 -FEV1/FVC: 81% -FEV1: 83% -FVC: 82% -IDX29-19%: 75% -Bronchodilator response: None -RV: 78% -T% -DLCO: 85% . * Procedure Codes: * Preventive Medicine: COVID Vaccination: H as patient had COVID Vaccination? COVID Vaccination Y es 02/18/2021 Immunization Status: P neumovacc P t Refused. I nfluenza P t Refused. Screenings/Counseling: F ALL RISK SCREENING Fall Risk Assessment: N o falls in the past year Are you afraid of falling? N o T OBACCO ACTION PLAN Exclusion: M edical Reason Non Smoker Type of Medical Reason: N ot indicated B PA ACTION PLAN Above Normal BMI Follow-up D ietary management education, guidance, and counseling * Follow Up: 1 Month (Reason: HALE[place] - CPAP compliance) * * Sign off status: Completed Visit Status: C HK (Check Out) true * Provider: Jean Pierre Kline DO Date: 0 01/02/2025 Generated for Mohini aguilar/Teresa/Jeff on: 0 03/21/2025 09:02 AM EDT History and Physical Notes * HPI (History of Present Illness) Category Sub-Category Detail Notes Category Not es [place] Sleepiness Scale [place] Sleepiness Scale Chance of dozing while sitting and reading:: 2 - Moderate Chance Patient presents for Pulmonary Clearance prior to a gastric bypass by Dr.Sarah Hugo at [facility]. Patient is not currently scheduled for a date at this time. Patient admits to not being compliant with her PAP. DME:[facility]. Patient has a hard time with her mask. Patient denies any issues with her breathing.today. Patient reports rare albuterol use. Chance of dozing while watching TV:: 2 - Moderate Chance Chance of dozing while sitting in a publ ic place:: 0 - Never Chance of dozing as a passen stephani in a car for an hour without a break:: 0 - Never Chance of dozing while lying down in the afternoon to rest:: 3 - High Chance Chance of dozing while sitting and talki ng to someone:: 0 - Never Chance of dozing while sitting quietly a fter lunch:: 1 - Slight Chance Chance of dozing in a stopped car for a few minutes in traffic:: 0 - Never TOTAL SCORE:: 8 Examination Category Sub-Category Detail Notes Category Not es Exam GENERAL APPEARANCE: Does not claudia ear to be in any distress. Morbidly obese Skin Normal Mouth Wever and moist Trachea Midline Chest Normal Respiratory Normal Movements, Ef fort Normal Auscultation Breath sounds remain diminished but clear without wheezes, crackles, or rhonchi Percussion Egophony Bronchophony Fremitus Whispered pectoriloquy Cardiac Regular rate and rhy thm Gastrointestinal Excessive abdominal adiposity Vascular No edema Musculoskeletal Normal posture Neurological Focal, intact Psychiatric Alert and oriented x 3 Mentation/Cognition Normal Oropharynx/Tongue Mallampati Class III . Macroglossia., Tongue ridging
--- OUTSIDE RECORDS SUMMARY | 2025-01-30 04:00 | XMS_ITS ---
Author Organization [facility] Servic es Address [address] [place] [address] Care Team Providers Care Periodicals Clerk Name Role Phone Tayla Giles Primary Care Provider [phone] Kaliealverto Sarika Unavailable [phone] Dr. Dayron Onofre Unavailable [phone] REASON FOR VISIT UPDATED EXAM Encounters Encounter Location Date Provider Diagnosis [facility] [address] [place] [address] 01/30/2025 Dayron Onofre Plan Of Treatment No Information Progress Notes * IDALIA MCKEONDOB:[birth year] (35 yo F)Acc No.[id number]:01/30/2025 Patient: IDALIA MATIAS Provider: Nirav Onofre DDS :1990 A ge:35 Y S ex:Female Date:01/30/2025 Address:[address] [place], [place] [id number] Pcp:Tayla Giles Subjective: * Chief Complaints: * 1 . UPDATED EXAM. * Medical History: Objective: * Vitals: Assessment: Plan: * Treatment: * Images: * Electronic signature of Dr. Dayron Onofre , DMD on 03/21/2025 at 09:02 AM EDT Sign off status: Pending * Provider: Nirav Onofre DDS Date: 01/30/2025 Generated for Printi ng/Faxing/eTransmitting on: 03/21/2025 09:02 AM EDT
--- OUTSIDE RECORDS SUMMARY | 2025-02-06 05:30 | XMS_ITS ---
Author Organization [facility] [place] Address [address] [place] [address] Care Team Providers Care Roll Form Operator Name Role Phone Brenda Jeanmarie Primary Care Provider Unavail able Dinesh Kline Unavailable [phone] Allergies Allergen (clinical drug ingredient) Drug/Non Drug Allergy documented on EMR Reaction Allergy Type Onset Date Status risperidone RisperDAL Numbness Drug Allergy Activ e REASON FOR VISIT 1m F/U - HALEIGH/PAP compliance Medications Medication SIG (Take, Route, Fr equency, Duration) Notes Start Date End Date Status Invega Sustenna 234 MG/1.5ML INJECT 234MG INTRAMUSCULARLY EVERY 30 DAYS Intramuscular for 30 Days Active Mirena (52 MG) 20 MCG/DAY as directed Intrauterine Act justice metFORMIN HCl ER 500 MG TAKE 1 TABLET BY MOUTH IN THE EVENING WITH MEALS -- DO NOT CRUSH, CHEW OR SPLIT Oral for 30 Days Active Ventolin HFA 108 (90 Base) MCG/ACT 2 puffs as needed for SOB Inhalation every 4 hrs for 30 days Active FLUoxetine HCl 20 MG Oral for 30 Days Active Omeprazole 40 MG 1 capsule 30 minutes before morning meal Orally Once a day Active Vitamin D3 50 MCG (1999 UT) 1 capsule Orally Once a day Active Social History Tobacco Use: Social History Observation Description Date Details (start date - stop date) Never Smoker NA - NA Tobacco Control (Standard) Question Answer Notes Tobacco use: Nonsmoker Vital Signs Temperature 96.6 degrees Fahrenheit 02/07/20 25 Blood pressure systolic 148 mm Hg 02/07/20 25 Blood pressure diastolic 102 mm Hg 025 Heart Rate 71 /min 02/06/2025 Respiratory Rate 18 /min 02/06/2025 Height 64 in 02/06/2025 Weight 330.8 lbs 02/06/2025 BMI 56.78 kg/m2 02/06/2025 Oximetry 97 % 02/06/2025 Encounters Encounter Location Date Provider Diagnosis Pulmonary Medicine [address] [address] 02/06/2025 Dinesh Rufino Encounter for preprocedural respiratory examination Z01.811 ; Obstructive sleep apnea G47.33 ; Mild persistent asthma, uncomplicated J45.30 and Obesity, morbid, BMI 50 or higher E66.01 Assessments Encounter Date Diagnosis (ICD Code) Assessment Notes Treatment Notes Treatment Clinical Notes Section Notes 02/06/2025 Encounter for preprocedural respiratory examination (ICD-10 - Z01.811) Patient in beginning stages of weight loss surgery with Dr. Eduarda Hugo, either gastric sleeve vs. Claudia-en-Y. She was previously seen by me on 01/02/2025. Her asthma remains well-controlled, but she was not using her CPAP. I did not clear her for surgery d/t non-compliance. She was given 1 month begin using the CPAP. Since that visit, she has been faithful with the CPAP, achieving 90% compliance of all days >4 hours use ( days). She also admits that her sleep is more restful and declines any daytime hypersomnolence. She was encouraged to keep up with the CPAP as it is obviously helping both the HALEIGH and its associated symptoms. She voiced she would. Her asthma remains compensated. As she is now using the CPAP, I feel she is acceptable to proceed with surgery. I recommend she continue to use her CPAP as permitted perioperatively by bariatric surgery & anesthesia. Additionally, recommend anesthesia be prepared with perioperative bronchodilators in the event of bronchospasm. 02/06/2025 Obstructive sleep apnea (ICD-10 - G47.33) Klsm-ra-vnlu encounter performed with the patient to document continued need for PAP therapy. [place] AHI: 8.7; REM-AHI: 47.6 -Split-night 02/07/2023 ([facility]) - AHI: 18 -Compliance reviewed from 01/07/2025 - 02/05/2025-Total days used: (90%)-Total of all days >4 hours of use: (90%)-Current mode & pressures: AirSense 11 Autoset auto-CPAP [id number] -Pressure (median): 5.9cm/L7J-Porsonrq AHI: 0.9-Air leak 95th percentile: 0L/min-Mask/harness fitting: Occasional leak - positional-Sleep quality: More restful sleep now that she is using it-Daytime hypersomnolence: Decreased with CPAP use-Recommendations : She is using it and feels better! Compliance is good too! Resolution of HALEIGH - residual AHI 0.9. Only requiring ~6cmH2O pressure on the autoCPAP. I would not change anything at this point. Patient admitted she feels better using the CPAP. Continue to use CPAP @ HS/naps. 02/06/2025 Mild persistent asthma, uncomplicated (ICD-10 - J45.30) Controlled without a maintenance inhaler, rarely using albuterol PRN. No exacerbations - should be good for surgery. 02/06/2025 Obesity, morbid, BMI 50 or higher (ICD-10 - E66.01) Okay to proceed with weight loss surgery (gastric sleeve vs. Claudia-en-Y) from a pulmonary perspective. Plan Of Treatment Medication Medication Name Sig Start Date Stop Date Notes Ventolin HFA 108 (90 Base) MCG/ACT 2 puffs as needed for SOB Inhalation every 4 hrs for 30 days Treatment Notes Assessment Notes Encounter for preprocedural respiratory examination Patient in beginning stages of weight loss surgery with Dr. Eduarda Hugo, either gastric sleeve vs. Claudia-en-Y. She was previously seen by me on 01/02/2025. Her asthma remains well-controlled, but she was not using her CPAP. I did not clear her for surgery d/t non-compliance. She was given 1 month begin using the CPAP. Since that visit, she has been faithful with the CPAP, achieving 90% compliance of all days >4 hours use ( days). She also admits that her sleep is more restful and declines any daytime hypersomnolence. She was encouraged to keep up with the CPAP as it is obviously helping both the HALEIGH and its associated symptoms. She voiced she would. Her asthma remains compensated. As she is now using the CPAP, I feel she is acceptable to proceed with surgery. I recommend she continue to use her CPAP as permitted perioperatively by bariatric surgery & anesthesia. Additionally, recommend anesthesia be prepared with perioperative bronchodilators in the event of bronchospasm. Obstructive sleep apnea Yngq-bg-chjo encounter performed with the patient to document continued need for PAP therapy. -[place] 07[place]14[place] - AHI: 8.7; REM-AHI: 47.6 -Split-night 02/07/2023 ([facility]) - AHI: 18 -Compliance reviewed from 01/07/2025 - 02/05/2025-Total days used: (90%)-Total of all days >4 hours of use: / (90%)-Current mode & pressures: AirSense 11 Autoset auto-CPAP [id number] -Pressure (median): 5.9cm/W0S-Lcddcpqe AHI: 0.9-Air leak 95th percentile: 0L/min-Mask/harness fitting: Occasional leak - positional-Sleep quality: More restful sleep now that she is using it-Daytime hypersomnolence: Decreased with CPAP use-Recommendations: She is using it and feels better! Compliance is good too! Resolution of HALEIGH - residual AHI 0.9. Only requiring ~6cmH2O pressure on the autoCPAP. I would not change anything at this point. Patient admitted she feels better using the CPAP. Continue to use CPAP @ HS/naps. Mild persistent asthma, uncomplicated Controlled without a maintenance inhaler, rarely using albuterol PRN. No exacerbations - should be good for surgery. Obesity, morbid, BMI 50 or higher Okay to proceed with weight loss surgery (gastric sleeve vs. Claudia-en-Y) from a pulmonary perspective. Next Appt Details Follow Up: 1 Year, Reason: Tameka montague, HALEIGH Provider Name:Dinesh Kline, 02/04/2026 09:30:00 AM, [address] [place], [address], Procedure Notes * Category Sub-Category Detail Notes 16 Channel overnight polysomonography (PSG) Supervised 02/08/2023 - [facility] (split-night )-AHI 181 - [facility]I 8.4-HDW-hbjrnx AHI 47.6 PFT Data: 06/10/2022-FEV1/F VC: 86%-FEV1: 85%-FVC: 82%-No bronchodilator administered-RV: 78%-T%-DLCO: 123%-Flow-volume loop: Mild restriction03/21/2020-FEV1/FVC: 89%-FEV1: 85%-FVC: 81%-Bronchodilator response: Only positive in WBW32-35%-RV: 98%-T%-DLCO: 114%07/16/2015-FEV1/FVC: 81% -FEV1: 83%-FVC: 82%-TIC08-74%: 75%-Bronchodilator response: None-RV: 78%-T%-DLCO: 85% Progress Notes * Idalia KAM MDOB: (35 yo F)Acc No.[id number]:02/06/2025 Follow Up Patient: Rachael ALEJANDROHARSHALYASIR Idalia Felipe Provider: Jean Pierre Kline DO :1990 A ge:35 Y S ex:Female Date:02/06/2025 Address:[address] [place] [address], [id number] Pcp:Jeanmarie Gutierrez, Check In:09:03 AM ESTCheck O ut:09:34 AM EST Subjective: * Chief Complaints: * 1 m F/U - HALEIGH/PAP compliance * HPI: E pworth Sleepiness Scale: Patient was here last month for preop eval for weight loss surgery. She was not using her CPAP. I had a npttg-ce-zniwt talk with her about the necessity to use it. She returns today for compliance. SHE IS USING IT AND STATES SHE ACTUALLY FEELS BETTER! She has good compliance - 90% of all nights >4 hours. She admits to better rested sleep and decreased daytime hypersomnolence. She is only requiring avgerage of 5.9cmH2O on the autoPAP. Admits to a very bad headache ongoing for ~2 days that seems unrelated to HALEIGH. Regarding asthma, she states this is well-controlled. MA Intake Comments:. [place] Sleepiness Scale C khadijah of dozing while sitting and reading:�1 - Slight Chance C khadijah of dozing while watching TV: 1 - Slight Chance C khadijah of dozing while sitting in a public place: 0 - Never C khadijah of dozing as a passenger in a car for an hour without a break: 0 - Never C khadijah of dozing while lying down in the afternoon to rest: 1 - Slight Chance C khadijah of dozing while sitting and talking to someone: 0 - Never C khadijah of dozing while sitting quietly after lunch: 0 - Never C khadijah of dozing in a stopped car for a few minutes in traffic: 0 - Never T OTAL SCORE: 3 Patient presents for a follow-up for HALEIGH. Patient has been compliant with her PAP since her last visit. Patient reports great benefit and states she has been sleeping much better since wearing her PAP machine. DME: [facility]. Patient denies any issues or complaints with her machine. Patient denies any complaints with her breathing today. * ROS: G eneral/Constitutional: Fever or sweats [...] R caleb d enies. � N eurologic: Headache o ngoing for 2 days. S eizures d enies. T remor d enies. H ematology: Abnormal Bleeding d enies. P sychiatric: Anxiety d enies. * Active Problem List J45.30 Mild persistent asth ma, uncomplicated Modified On:08/22/2023W/U Status:confirmed E66.01 Morbid obesity Modified On:05/10/2023U Status:confirmed [...] M aternal Grandfather: asthma, diagnosed with Unspecified heart disease, Unspecified essential hypertension. M aternal Grandmother: asthma, diagnosed with Unspecified [...] Capsule 1 capsule Orally Once a day Medication List reviewed and reconciled with the patientTaking FLUoxetine HCl 20 MG Capsule Oral Taking [...] 4 hrs Taking Vitamin D3 50 MCG (1999 UT) Capsule 1 capsule Orally Once a day Medication List reviewed and reconciled with the patient * Allergies: R isperDAL: Numbness - Allergyno[Allergies Verified] Objective: * Vitals: W t:330.8lbs, Ht: 64 in, BP:sittin/102mm Hg, Temp:Forehead:96.6F, HR:71/min, RR:18/min, BMI:56.78Index, Oxygen sat %:Room Air:97%, Ht-cm: 162.56 cm, Wt-k.05 kg. * Examination: E xam: GENERAL APPEARANCE: M orbidly obese. Headache is bothering her. Skin N ormal. Mouth P ink and moist. Oropharynx/Tongue M allampati Class III. Macroglossia., Tongue ridging. Trachea M idline. Chest N ormal. Respiratory Normal M ovements, E ffort N ormal. Auscultation D iminished but clear breath sounds. Cardiac R egular rate and rhythm. Gastrointestinal [...] Treatment: 2. O bstructive sleep apnea Notes: Snim-cf-vygd encounter performed with the patient to document continued need for PAP therapy. -PSG 07/14/20[place] - AHI: 8.7; REM-AHI: 47.6 -Split-night 02/07/2023 ([facility]) - AHI: 18 -Compliance reviewed from 01/07/2025 - 02/05/2025-Total days used: (90%)-Total of all days >4 hours of use: / (90%)-Current mode & pressures: AirSense 11 Autoset auto-CPAP [id number] -Pressure (median): 5.9cm/T9Q-Wlgvmhaf AHI: 0.9-Air leak 95th percentile: 0L/min-Mask/harness fitting: Occasional leak - positional-Sleep quality: More restful sleep now that she is using it-Daytime hypersomnolence: Decreased with CPAP use-Recommendations: She is using it and feels better! Compliance is good too! Resolution of HALEIGH - residual AHI 0.9. Only requiring ~6cmH2O pressure on the autoCPAP. I would not change anything at this point. Patient admitted she feels better using the CPAP. Continue to use CPAP @ HS/naps. 3. M ild persistent asthma, uncomplicated Refill Ventolin HFA Aerosol Solution, 108 (90 Base) MCG/ACT, 2 puffs as needed for SOB, Inhalation, every 4 hrs, 30 days, 1 each, Refills 12. Notes: Controlled without a maintenance inhaler, rarely using albuterol PRN. No exacerbations - should be good for surgery. 4. O besity, morbid, BMI 50 or higher Notes: Okay to proceed with weight loss surgery (gastric sleeve vs. Claudia-en-Y) from a pulmonary perspective. * Procedures: 1 6 Channel overnight polysomonography (PSG): Supervised 02/08/2023 - [facility] (split-night) -AHI 18 07/14/2021 [place] [facility] [place]AHI 8.7 -REM-supine AHI 47.6. P FT: Data: 06/10/2022 -FEV1/FVC: 86% -FEV1: 85% -FVC: 82% -No bronchodilator administered -RV: 78% -T% -DLCO: 123% -Flow-volume loop: Mild restriction 03/21/2020 -FEV1/FVC: 89% -FEV1: 85% -FVC: 81% -Bronchodilator response: Only positive in HBU15-23% -RV: 98% -T% -DLCO: 114% 07/16/2015 -FEV1/FVC: 81% -FEV1: 83% -FVC: 82% -NIH84-48%: 75% -Bronchodilator response: None -RV: 78% -T% [...] of Medical Reason: N ot indicated B [place] ACTION PLAN Above Normal BMI Follow-up D ietary management education, guidance, and counseling * Follow Up: 1 Year (Reason: Asthma, HALEIGH) * * Sign off status: Completed Visit Status: C HK (Check Out) true * Provider: Jean Pierre Kline DO Date: 02/06/2025 Generated for Mohini aguilar/Teresa/Talyaitting on: 03/21/2025 09:02 AM EDT History and Physical Notes * HPI (History of Present Illness) Category Sub-Category Detail Notes Category Not es [place] Sleepiness Scale [place] Sleepiness Scale Chance of dozing while sitting and reading:: 1 - Slight Chance Patient presents for a follow-up for HALEIGH. Patient has been compliant with her PAP since her last visit. Patient reports great benefit and states she has been sleeping much better since wearing her PAP machine. DME: [facility]. Patient denies any issues or complaints with her machine. Patient denies any complaints with her breathing today. Chance of dozing while watching TV:: 1 - Slight Chance Chance of dozing while sitting in a publ ic place:: 0 - Never Chance of dozing as a passen stephani in a car for an hour without a break:: 0 - Never Chance of dozing while lying down in the afternoon to rest:: 1 - Slight Chance Chance of dozing while sitting and talki ng to someone:: 0 - Never Chance of dozing while sitting quietly a fter lunch:: 0 - Never Chance of dozing in a stopped car for a few minutes in traffic:: 0 - Never TOTAL SCORE:: 3 Examination Category Sub-Category Detail Notes Category Not es Exam GENERAL APPEARANCE: Morbidly obese. Heada katalina is bothering her Skin Normal Mouth Navy and moist Trachea Midline Chest Normal Respiratory Normal Movements, Ef fort Normal Auscultation Diminished but clear breath sounds Percussion Egophony Bronchophony Fremitus Whispered pectoriloquy Cardiac Regular rate and rhy thm Gastrointestinal Excessive abdominal adiposity Vascular No edema Musculoskeletal Normal posture Neurological Focal, intact Psychiatric Alert and oriented x 3 Mentation/Cognition Normal Oropharynx/Tongue Mallampati Class III . Macroglossia., Tongue ridging
--- OUTSIDE RECORDS SUMMARY | 2025-02-28 04:30 | XMS_ITS ---
Author Organization [facility] Serv[facility] es Address [address] [place] [address] Care Team Providers Care Math And Science Division Chair Name Role Phone Tayla Giles Primary Care Provider Kaliealverto Sarika Unavailable [phone] Dr. Dayron Onofre Unavailable [phone] REASON FOR VISIT UPDATED EXAM Encounters Encounter Location Date Provider Diagnosis [facility] [address] [place] [address] 02/28/2025 Dayron Onofre Plan Of Treatment No Information Progress Notes * IDALIA MCKEONDOB:[birth year] (35 yo F)Acc No.[id number]:02/28/2025 Patient: IDALIA MATIAS Provider: Nirav Onofre DDS :1990 A ge:35 Y S ex:Female Date:02/28/2025 Address:[address] [place], [place] [id number] Pcp:Tayla Giles Subjective: * Chief Complaints: * 1 . UPDATED EXAM. * Medical History: Objective: * Vitals: Assessment: Plan: * Treatment: * Images: * Electronic signature of Dr. Dayron Onofre , DMD on 03/21/2025 at 09:02 AM EDT Sign off status: Pending * Provider: Nirav Onofre DDS Date: 0 02/28/2025 Generated for Printi ng/Faxing/eTransmitting on: 0 03/21/2025 09:02 AM EDT
--- OUTSIDE RECORDS SUMMARY | 2025-03-14 08:00 | XMS_ITS | Encounter Summary ---
Author Organization [facility] Address [address] [place] [address] Care Team Providers Care Manager Of Financial Reporting Name Role Phone FoxburgJeanmarie pineda Dheeraj DO Primary Care Provider + [phone] Dinesh Kline DO Unavailable [phone] Sierra Rascon PMHNP-BC Unavailable + [phone] Reason for Visit * Reason Comments Med Management Follow-up Encounter Details Date Type Department Care Team (Late st Contact Info) Description 03/14/2025 8:00 AM EDT Office Visit [facility] [address] [place] [address] Sierra Rascon, [facility] [facility] [address] [place] [address] History of psychosis (Primary Dx); Severe episode of recurrent major depressive disorder, without psychotic features (HCC); DERICK (generalized anxiety disorder) Social History Tobacco Use Types Packs/Day Years Used Date Smoking Tobacco: Never Smokeless Tobacco: Never Tobacco Cessation:Counseling Given: Not Answered Alcohol Use Standard Drinks/Week Comments Yes 0 (1 standard drink = 0.6 oz pure alcohol) Caffeine: >4 cups/day; soda occasional coffee AUDIT-C Answer Date Recorded Q1: How often do you have a drink containing alc ohol? Monthly or less 10/23/2024 Q2: How many drinks containi ng alcohol do you have on a typical day when you are drinking? 1 or 2 10/23/2024 Q3: How often do you have si x or more drinks on one occasion? Never 10/23/2024 PHQ-2 Answer Date Recorded Patient Health Questionnaire-2 Score 0 02/27/2025 Comments No Sex and Gender Information Value Date Recorded Sex Assigned at Not on file Legal Sex Female 7:18 PM EDT Gender Identity Not on file Sexual Orientation Not on file Occupation Industry Job Start Date Job End Date [place] Not on file Not on file Not on file documented as of this encounter Last Filed Vital Signs Vital Sign Reading Time Taken Comments Blood Pressure 124/76 03/14/2025 8:10 AM EDT Pulse 70 03/14/2025 8:10 AM EDT Temperature - - Respiratory Rate - - Oxygen Saturation - - Inhaled Oxygen Concentration - - Weight 151 kg (332 lb) 03/14/2025 8:10 AM EDT Height - - Body Mass Index 56.99 02/27/2025 10:10 AM EDT documented in this encounter Progress Notes * Sierra Rascon, PMHNP-BC - 03/14/2025 8:00 AM EDT Images from the original note were not included. HPI: Idalia Kam is a 35 y.o. female with a history of prediabetes, PCOS, asthma, sleep apnea (does not wear CPAP), history of psychosis, MDD, and DERICK. Patient is here today for follow-up. She is here for her Invega dose #4. At patient's last visit on 02/12/25, her Fluoxetine was increased. She states she stopped taking herFluoxetine for 3 weeks, and then restarted it about a week ago. She states that she has a bad habitof missing medications despite having it right in front of her at home to remind her. She states that she has noticed increased depression while she was off of the medication. She continues to see counselor at [facility] for therapy. SUBJECTIVE: PAST MEDICAL HISTORY: Past Medical History: Diagnosis Date Acquired hallux valgus 09/04/2024 Allergies Anxiety Asthma, mild intermittent (HCC) Bilateral occipital neuralgia 09/04/2024 Cervical dysplasia Cervical paraspinal muscle spasm 09/04/2024 De Quervain's disease (radial styloid tenosynovitis) 02/14/2025 Depression Essential hypertension 12/19/2013 Ganglion cyst of wrist, left History of psychosis Hx of psychiatric [place]2 [place] X3 [place] 4 [facility] [place] LGS[place] Pap smear of cervix Morbid obesity with BMI of 50.0-59.9, adult ([facility]) PCOS (polycystic ovarian syndrome) Plantar fasciitis of right foot ([facility]) 2008 Varicella zoster MEDICATIONS: Current Outpatient Medications Medication Instructions albuterol HFA 90 mcg/act inhaler 2 puffs, Every 4 hours PRN FLUoxetine (PROZAC WEEKLY) 90 mg, Oral, Every 7 days, Do not crush, chew, or split. Levonorgestrel (MIRENA, 52 MG, IU) by Intrauterine route metFORMIN XR (GLUCOPHAGE-XR) 500 mg, Oral, Daily with evening meal, Do not crush, chew, or split. nystatin (Mycostatin) 611194 UNIT/GM powder Topical, 2 times daily ondansetron (ZOFRAN) 4 mg, Oral, Every 6 hours PRN paliperidone palmitate ER (INVEGA SUSTENNA) 156 mg, Intramuscular, Once, Bring in to office. pantoprazole (PROTONIX) 40 mg, Oral, Daily before breakfast, Do not crush, chew, or split. sucralfate (CARAFATE) 1 g, Oral, 4 times daily before meals and nightly ALLERGIES: Allergies Allergen Reactions Risperidone Hives and Rash Other Reaction(s): Slurring of speech, Tremors Other reaction(s): jittery, throat closure, shaking Other Reaction(s): Slurring of speech, Tremors Latuda [Lurasidone] Other Suicidal thoughts SURGICAL HISTORY: Past Surgical History: Procedure Laterality Date CARPAL TUNNEL RELEASE CERVICAL BIOPSY W/ LOOP ELECTRODE EXCISION 2019 LEEP CHOLECYSTECTOMY 2014 CYST REMOVAL left wrist ganglion cyst removal x2 DILATION AND CURETTAGE 2019 FOOT SURGERY Right 01/2020 HEEL SPUR EXCISION Left IUD REMOVAL 2020 VAGINAL DELIVERY 2008 FAMILY HISTORY: Family History Problem Relation Name Age of Onset Seizures Mother Lucrecia Hypertension Mother Lucrecia Schizophrenia Mother Lucrecia Hypertension Father Asthma Father Hypertension Maternal Grandmother Cancer Maternal Grandmother Heart disease Maternal Grandfather Hypertension Paternal Grandmother Diabetes Paternal Grandmother Hypertension Paternal Grandfather Heart disease Paternal Grandfather SOCIAL HISTORY: Social History Tobacco Use Smoking status: Never Smokeless tobacco: Never Vaping Use Vaping status: Never Used Substance Use Topics Alcohol use: Yes Comment: Caffeine: >4 cups/day; soda occasional coffee Drug use: Never Patient Care Team: Jeanmarie Gutierrez DO as PCP - General (Family Medicine) Dinesh Kline DO as Art Education Professor (Pulmonary Disease) AIDA Calix as Nurse Practitioner (Behavioral Health) PSYCHIATRIC REVIEW OF SYMPTOMS AND MENTAL STATUS EXAM ROS: Patient denies fatigue, malaise, night sweats, weight loss, weight gain, cough, SOB, palpitations, chest pain, insomnia, dysphagia, abdominal pain, N/V/D, pruritus, rash, headache, dizziness, seizures, tremors, headache. Appearance Appearance: Normal grooming and hygiene. Appears stated age. Dressed appropriately for weather., Obese Behavior Calm, cooperative, pleasant. Good posture. Psychomotor Activity Intact. No abnormal movements noted. Eye contact Good Speech Normal, clear, regular rate, rhythm and volume Affect Blunted Mood Depressed Thought Process Organized, logical, and goal directed Thought Content: Denies suicidal and homicidal ideation. Perception: Denies auditory or visual hallucinations. No evidence of delusions. Denies derealization and depersonalization. Cognition Alert and attentive during visit Memory Immediate, recent and remote memory intact Insight Good. Acknowledges predominant symptoms of illness and need for treatment Judgement Fair OBJECTIVE: Visit Vitals BP 124/76 (BP Location: Left arm, Patient Position: Sitting) Pulse 70 Wt 332 lb BMI 56.99 kg/m² OB Status Implant Smoking Status Never BSA 2.61 m² Lab Results Component Value Date TSH 2.060 09/17/2024 Lab Results Component Value Date GLU 118 (H) 09/17/2024 CALCIUM 8.8 09/17/2024 NA 138 09/17/2024 K 4.2 09/17/2024 CO2 22 09/17/2024 CL 103 09/17/2024 BUN 6 09/17/2024 CREATININE 0.85 09/17/2024 Lab Results Component Value Date WBC 7.1 12/18/2024 HGB 13.5 09/17/2024 HCT 40.0 09/17/2024 MCV 89 09/17/2024 PLT 227 09/17/2024 Lab Results Component Value Date HDL 36 (L) 09/17/2024 09/17/24 - A1C (6.1%) ASSESSMENT AND PLAN: Impression: Patient with severe MDD and DERICK. Patient has tried several different SSRI medications, mood stabilizer and other antipsychotics. She reports trouble remembering to take pills, and also has a history of VH and AH. She reports tolerating Invega well and wants to continue injection. Patient is aware that her medication would be used off label for her symptoms. She denies any current SI, HI, VH and AH. She has had problems remembering to take her Fluoxetine daily. We discussed changing to delayed release capsule to help with adherence. She is agreeable to this. She is aware that she will start the delayed release capsule 7 days after her last dose of 40 mg tablet. She is aware of my maternity leave this upcoming fall and that [facility] will be covering for any medication changes that may be needed while I am off. Assessment/Plan Diagnoses and all orders for this visit: Severe episode of recurrent major depressive disorder, without psychotic features (HCC) - FLUoxetine (PROzac Weekly) [address] capsule; Take 1 capsule (90 mg) by mouth every 7 (seven) daysDo not crush, chew, or split. DERICK (generalized anxiety disorder) - FLUoxetine (PROzac Weekly) [address] capsule; Take 1 capsule (90 mg) by mouth every 7 (seven) daysDo not crush, chew, or split. History of psychosis Treatment Plan/Recommendations: - Continue Invega Sustenna 156 mg every month for depression, mood, anxiety. - Stop Fluoxetine 40 mg and switch to 90 mg delayed release capsule to help with adherence. - Continue counseling for additional mental health support and treatment. - RTC in 04/16 as scheduled. Discussed any medication changes and follow-up plan with patient. Encouraged patient to call office sooner if symptoms worsen or if any questions/concerns arise. Patient was seen Face to Face, Total time spent with patient was 20 minutes, which includes reviewing chart documents, previous notes/records, counseling and discussion with patient and/or coordination of care as described above. documented in this encounter Miscellaneous Notes * Addendum Note - Clemencia Mayer LPN - 03/14/2025 8:00 AM EDTAddended by: CLEMENCIA MAYER on: 03/14/2025 10:04 AM Modules accepted: Orders documented in this encounter Plan of Treatment Upcoming Encounters Date Type Department Care Team (Late st Contact Info) Description 04/16/2025 11:30 AM EDT Office Visit [facility] [address] [place] [address] Sierra Rascon, PMHNP-BC [address] [place] [address] 05/16/2025 11:30 AM EDT Office Visit [facility] [address] [place] [address] Sierra Rascon, PMHNP-BC [address] [place] [address] 06/13/2025 11:30 AM EDT Office Visit [facility] [address] [place] [address] Sierra Rascon, PMHNP-BC [address] [place] [address] 06/17/2025 8:20 AM EDT Office Visit [facility] [address] [place] [id number] Jeanmarie Gutierrez, DO [address] [place] [address] 03/25/2026 11:00 AM EDT Office Visit [facility] [address] [facility] [place] [address] Hernandez Gibson, DO [address] [place] [address] documented as of this encounter Visit Diagnoses Diagnosis History of psychosis- Primary Severe episode of recurrent major depressive disorder, without psychotic features (HCC) DERICK (generalized anxiety disorder) Generalized anxiety disorder documented in this encounter Administered Medications Inactive Administered Medications - up to 3 most recent administrations Medication Order MAR Action Action Date Dose Rate Site paliperidone palmitate ER (Invega Sustenna) injection suspension prefilled syringe 156 mg 156 mg, Intramuscular, Once, On Yasmeen 03/14/25 at 1015, For 1 doseIndications:Severe episode of recurrent major depressive disorder, without psychotic features (HCC),History of psychosis Given 03/14/2025 6:10 PM EDT 156 mg Right Deltoid documented in this encounter Additional Health Concerns Assessment Noted Time PHQ-9 Depression Total Score: 13 025 8:35 AM EDT documented as of this encounter Care Teams Manager Of Financial Reporting Relationship Specialty Start Date End Date Jeanmarie Gutierrez DO [address] [facility] [address] [place] [address] PCP - General Family Medicine 09/04/24 Dinesh Kline DO [address] [facility] [address] [place] [address] Art Education Professor Pulmonary Disease 10/23/24 Sierra Rascon PMHNP- 112 [facility] [address] [place] [address] Nurse Practitioner Behavioral Health 10/23/24 documented as of this encounter
--- OUTSIDE RECORDS SUMMARY | 2025-03-21 09:20 | XMS_ITS | Encounter Summary ---
Author Organization [facility] Address [address] [place] [address] Care Team Providers Care Area Safety Manager Name Role Phone CridersJeanmarie pineda Dheeraj DO Primary Care Provider + [phone] Dinesh Kline DO Unavailable [phone] Sierra Rascon [facility]- Unavailable + [phone] Reason for Visit * Reason Comments Well Women Visit Encounter Details Date Type Department Care Team (Late st Contact Info) Description 03/21/2025 9:20 AM EDT Office Visit [facility] [address] [place] [address] Hernandez Gibson, DO [address] [place], [facility] Well woman exam with routine gynecological exam Social History Tobacco Use Types Packs/Day Years Used Date Smoking Tobacco: Never Smokeless Tobacco: Never Alcohol Use Standard Drinks/Week Comments Yes 0 [...] Industry Job Start Date Job End Date [place] Not on file Not on file Not on file documented as of this encounter Progress Notes * Raysa Perry, COMPLIANCE MGR - 03/21/2025 9:20 AM EDT Reason for Appointment: Patient ID: Idalia Kam is a 35 y.o. female who presents for Well Women Visit Patient presents today for Annual Exam. MEDICATIONS Current Outpatient Medications Medication Instructions albuterol HFA 90 mcg/act inhaler 2 puffs, Every 4 hours PRN FLUoxetine (PROZAC WEEKLY) 90 mg, Oral, Every 7 days, Do not crush, chew, or split. Levonorgestrel (MIRENA, 52 MG, IU) by Intrauterine route nystatin (Mycostatin) 727853 UNIT/GM powder Topical, 2 times daily paliperidone palmitate ER (INVEGA SUSTENNA) 156 mg, Intramuscular, Once, Bring in to office. ALLERGIES Allergies Allergen Reactions Risperidone Hives and Rash Other Reaction(s): Slurring of speech, Tremors Other reaction(s): jittery, throat closure, shaking Other Reaction(s): Slurring of speech, Tremors Latuda [Lurasidone] Other Suicidal thoughts PROBLEMS Active Ambulatory Problems Diagnosis Date Noted Asthma ([facility]) 12/01/2023 History of loop electrosurgical excision procedure (LEEP) of cervix affecting in first trimester ([facility]) 06/26/2021 Mixed anxiety and depressive disorder 09/04/2024 Morbid (severe) obesity due to excess calories ([facility]) 12/01/2023 Obstructive sleep apnea 09/04/2024 PCOS (polycystic ovarian syndrome) 12/01/2023 Prediabetes 12/01/2023 Severe episode of recurrent major depressive disorder, with psychotic features ([facility]) 12/19/2013 History of psychosis 10/23/2024 Allergy to animals 02/14/2025 Major depression with psychotic features ([facility]) 02/14/2025 Chronic GERD 02/14/2025 Gastritis 02/14/2025 Headache 02/14/2025 Resolved Ambulatory Problems Diagnosis Date Noted Anxiety 12/01/2023 Acquired hallux valgus 09/04/2024 Bilateral occipital neuralgia 09/04/2024 Cervical paraspinal muscle spasm 09/04/2024 Essential hypertension 12/19/2013 Major depressive disorder, recurrent, in partial remission 12/01/2023 De Quervain's disease (radial styloid tenosynovitis) 02/14/2025 Past Medical History: Diagnosis Date Allergies Asthma, mild intermittent (HCC) Cervical dysplasia Depression Ganglion cyst of wrist, left Hx of psychiatric hospitalization LGSIL on Pap smear of cervix Morbid obesity with BMI of 50.0-59.9, adult ([facility]) Plantar fasciitis of right foot ([facility]) 2009 Varicella zoster HISTORY PAST MEDICAL HISTORY SOCIAL HISTORY Past Medical History: Diagnosis Date Acquired hallux valgus 09/04/2024 Allergies Anxiety Asthma, mild intermittent (HCC) Bilateral occipital neuralgia 09/04/2024 Cervical dysplasia Cervical paraspinal muscle spasm 09/04/2024 De Quervain's disease (radial styloid tenosynovitis) 02/14/2025 Depression Essential hypertension 12/19/2013 Ganglion cyst of wrist, left History of psychosis Hx of psychiatric hospitalization X2 [place] and X3 or 4 [facility] for SI LGSIL on Pap smear of cervix Morbid obesity with BMI of 50.0-59.9, adult ([facility]) PCOS (polycystic ovarian syndrome) Plantar fasciitis of right foot ([facility]) 2009 Varicella zoster Social History Tobacco Use Smoking status: Never Smokeless tobacco: Never Vaping Use Vaping status: Never Used Substance Use Topics Alcohol use: Yes Comment: Caffeine: >4 cups/day; soda occasional coffee Drug use: Never FAMILY HISTORY Family History Problem Relation Name Age of Onset Seizures Mother Lucrecia Hypertension Mother Lucrecia Schizophrenia Mother Lucrecia Hypertension Father Asthma Father Hypertension Maternal Grandmother Cancer Maternal Grandmother Heart disease Maternal Grandfather Hypertension Paternal Grandmother Diabetes Paternal Grandmother Hypertension Paternal Grandfather Heart disease Paternal Grandfather SURGICAL HISTORY Past Surgical History: Procedure Laterality Date CARPAL TUNNEL RELEASE CERVICAL BIOPSY W/ LOOP ELECTRODE EXCISION 2019 LEEP CHOLECYSTECTOMY 2014 CYST REMOVAL left wrist ganglion cyst removal x2 DILATION AND CURETTAGE 2019 FOOT SURGERY Right 01/2020 HEEL SPUR EXCISION Left IUD REMOVAL 2020 VAGINAL DELIVERY 2008 REVIEW OF SYSTEMS Review of Systems: Review of Systems Constitutional: Negative. HENT: Negative. Eyes: Negative. Respiratory: Negative. Cardiovascular: Negative. Gastrointestinal: Negative. Genitourinary: Negative. Musculoskeletal: Negative. Skin: Negative. Neurological: Negative. All other systems reviewed and are negative. Hematological: Negative. Endocrine: Negative. Allergic/Immunologic: Negative. OBJECTIVE Objective: Physical Exam Constitutional: Appearance: Normal appearance. She is well-developed. Genitourinary: Vulva normal. IUD strings visualized. Breasts: Breasts are soft. Right: Normal. Left: Normal. Cardiovascular: Rate and Rhythm: Normal rate and regular rhythm. Pulmonary: Effort: Pulmonary effort is normal. Breath sounds: Normal breath sounds. Abdominal: General: Bowel sounds are normal. There is no distension. Palpations: Abdomen is soft. Tenderness: There is no abdominal tenderness. There is no guarding or rebound. Musculoskeletal: General: No swelling. Normal range of motion. Right lower leg: No edema. Left lower leg: No edema. Neurological: Mental Status: She is alert and oriented to person, place, and time. Skin: General: Skin is warm and dry. Psychiatric: Mood and Affect: Mood normal. Behavior: Behavior normal. Vitals and nursing note reviewed. Exam conducted with a payroll secretary present. Vitals: Estimated body mass index is 56.99 kg/m² as calculated from the following: Height as of 02/27/25: 5' 4 . Weight as of 03/14/25: 332 lb. BP: No LMP recorded. Patient has had an implant. ASSESSMENT & PLAN ICD-10-CM 1. Well woman exam with routine gynecological exam Z01.419 Pap Smear HPV DNA probe, amplified Annual Exam: Patient presents today for an annual exam. Patient states she is doing well and has no complaints. Pap was obtained without difficulty. Orders Placed This Encounter Procedures HPV DNA probe, amplified Follow Up: Patient is to return in one year for annual unless needed otherwise. Documented by Raysa Perry LPN on behalf of: Hernandez Gibson DO documented in this encounter Plan of Treatment Upcoming Encounters Date Type Department Care Team (Late st Contact Info) Description 04/16/2025 11:30 AM EDT Office Visit [facility] [address] [place] [address] Sierra Rascon PMHNP-BC [address] [facility] [address] [place] [address] 05/16/2025 11:30 AM EDT Office Visit [facility] [address] [place] [address] Sierra Rascon [facility] [address] [facility] [address] [place] [address] 06/13/2025 11:30 AM EDT Office Visit [facility] [address] [place] [address] Sierra Rascon, [facility] [address] [facility] [address] [place] [address] 06/17/2025 8:20 AM EDT Office Visit [facility] [address] [facility] [address] [place] [address] Jeanmarie Gutierrez, [address] [place] [address] 03/25/2026 11:00 AM EDT Office Visit [facility] [address] [facility] [place] [address] Hernandez Gibson DO [address] [facility] [place] [address] Scheduled Orders Name Type Priority Associated Diagnoses Orde r Schedule Pap Smear Pathology and Cytology Routine Well woman exam with routine gynecological exam Ordered: 03/21/2025 HPV DNA probe, amplified Microbiology Routine Well woman exam with routine gynecological exam Ordered: 03/21/2025 documented as of this encounter Visit Diagnoses Diagnosis Well woman exam with routine gynecological exam Routine gynecological examination documented in this encounter Additional Health Concerns Assessment Noted Time PHQ-9 Depression Total Score: 13 03/18/2 025 8:35 AM EDT documented as of this encounter Care Teams Area Safety Manager Relationship Specialty Start Date End Date Criders, Jeanmarie L, DO [address] [place] [address] PCP - General Family Medicine 09/04/24 Dinesh Kline DO [address] [place] [address] [employer] Power Reactor Operator Pulmonary Disease 10/23/24 Sierra Rascon PMHNP- 112 [facility] [address] [place] [address] Nurse Practitioner Behavioral Health 10/23/24 documented as of this encounter
--- OUTSIDE RECORDS SUMMARY | 2025-03-21 12:37 | XMS_ITS | Encounter Summary ---
Author Organization [facility] Address [address] [place] [address] Care Team Providers Care Drafter Structural Name Role Phone Amelia Moody NP Primary Care Provider + [phone] Jeanmarie Gutierrez DO Primary Care Provider [phone] Dinesh Kline DO Unavailable [phone] Sierra Rascon [facility]- Unavailable [phone] Encounter Details Date Type Department Care Team (Late st Contact Info) Description 05/23/2023 External Result Encounter [facility] External Department Unsolicited Batsheva Lynne NP [address] [place] [address] Social History Tobacco Use Types Packs/Day Years Used Date Smoking Tobacco: Never Alcohol Use Standard Drinks/Week Comments Never 0 (1 standard drink = 0.6 oz pur e alcohol) Caffeine: >4 cups/day; soda Education Answer Date Recorded What is the highest level of school you have completed or the highest degree you have received? 11th grade 03/08/2023 Comments Unknown Sex and Gender Information Value Date Recorded Sex Assigned at Not on file Legal Sex Female 7:18 PM EDT Gender Identity Not on file Sexual Orientation Not on file documented as of this encounter Plan of Treatment Upcoming Encounters Date Type Department Care Team (Late st Contact Info) Description 04/16/2025 11:30 AM EDT Office Visit [facility] [address] [facility] [address] [place] [phone] Sierra Rascon, PMHNP-BC [address] [place] [address] 05/16/2025 11:30 AM EDT Office Visit [facility] [address] [place] [address] Sierra Rascon, PMHNP-BC [address] [place] [address] 06/13/2025 11:30 AM EDT Office Visit [facility] [address] [place] [address] Sierra Rascon, HNP-BC [address] [place] [address] 06/17/2025 8:20 AM EDT Office Visit [facility] [address] [place] [address] Jeanmarie Gutierrez, [address] [place] [address] 03/25/2026 11:00 AM EDT Office Visit [facility] [address] [place] [phone] Hernandez Gibson DO [address] [place] [address] [place] [address] documented as of this encounter Procedures Procedure Name Priority Date/Time Associated Diagnosis Comments XR ELBOW 3+ VIEWS LEFT 05/23/2023 11:07 AM EDT documented in this encounter Results * XR elbow 3+ views left (05/23/2023 11:07 AM EDT) Anatomical Region Laterality Modality Upper Extremities, Elbow Left Radiogr aphic Imaging 05/23/2023 11:0 7 AM EDT Impressions 05/24/2023 2:48 PM EDT SUSPECTED ELBOW EFFUSION, WITHOUT DEFINITE ACUTE BONY FINDINGS. CLINICAL CORRELATION IS RECOMMENDED. Impression dictated by: Juanis Engle M.D.05/23/2023 11:10 AM Dictation Location: [place] [address] Transcribed By: [facility] 05/23/23 1110 Dictated By: Juanis Engle MD 05/23/23 1107 Signed By: <Electronically signed by MD Juanis Engle in OV> 05/23/23 1110 Narrative 05/24/2023 2:48 PM EDT [facility] Main [address] [address] XRay Report Signed Patient: Idalia Kam MR#: [id number] : 1990 Acct:[id number] Age/Sex: 33 / F ADM Date: 05/23/23 Loc: ER Room: Type: [facility] ER Attending Dr: Copies to: Batsheva Lynne APRN Ordering Provider: Batsheva Lynne APRN Date of Service: 05/23/23 XR/XR elbow LT min 3V*: Extremity Injury, Upper LEFT ELBOW - 4 VIEWS CLINICAL HISTORY: Right elbow pain for the past few days, greater with extension. No injury. COMPARISON: None AP, lateral and both oblique views were obtained. There is no evidence of fracture or dislocation. There is minimal spurring at the coronoid process. There is slight elevation of the anterior fat pad suggesting joint effusion. No focal soft tissue swelling is noted. XR/XR elbow LT min 3V* Procedure Note Radiology, Radiologist, - 05/24/2023 [facility] Main [address] [address] XRay Report Signed Patient: Idalia Kam MMR#: [id number] : 1990Acct:[id number] Age/Sex: 33 / FADM Date: 05/23/23 Loc: ER Room:Type: [facility] ER Attending Dr: Copies to: Batsheva A Kiepert, BUSINESS PLANNING MANAGER Ordering Provider: Batsheva Lynne APRN Date of Service: 05/23/23 XR/XR elbow LT min 3V*: Extremity Injury, Upper LEFT ELBOW - 4 VIEWS CLINICAL HISTORY: Right elbow pain for the past few days, greater withextension. No injury. COMPARISON: None AP, lateral and both oblique views were obtained. There is no evidence of fracture or dislocation. There is minimalspurring at the coronoid process. There is slight elevation of the anterior fat pad suggesting jointeffusion. No focal soft tissue swelling is noted. XR/XR elbow LT min 3V* IMPRESSION: SUSPECTED ELBOW EFFUSION, WITHOUT DEFINITE ACUTE BONY FINDINGS. CLINICALCORRELATION IS RECOMMENDED. Impression dictated by: Juanis Engle M.D.05/23/2023 11:10 AM Dictation Location: [place] [address] Transcribed By: [facility] 05/23/23 1110 Dictated By: Juanis Engle MD 05/23/23 1107 Signed By: <Electronically signed by MD Juanis Engle in OV> 05/23/23 1110 us Batsheva Lynne [employer]UD[employer] TEACHER IMG XR PROCEDURES Final Resu lt documented in this encounter Visit Diagnoses Not on filedocumented in this encounter Care Teams Drafter Structural Relationship Specialty Start Date End Date Amelia Moody NP PCP - General 03/09/23 09/03/24 Jeanmarie Gutierrez DO [address] [place] [address] PCP - General Family Medicine 09/04/24 Dinesh Kline DO [address] [place] [address] Residential Building Inspector Pulmonary Disease 10/23/24 Sierra Rascon PMHNP- 112 [facility] [address] [place] [phone] Nurse Practitioner Behavioral Health 10/23/24 documented as of this encounter
--- OUTSIDE RECORDS SUMMARY | 2025-03-21 12:37 | XMS_ITS | Encounter Summary ---
Author Organization [facility] Address [address] [place] [address] Care Team Providers Care Bottling Line Attendant Name Role Phone Jeanmarie Gutierrez DO Primary Care Provider + [phone] Dinesh Kline DO Unavailable [phone] [facility] [facility]- Unavailable + [phone] Encounter Details Date Type Department Care Team (Late st Contact Info) Description 02/07/2025 Abstract [facility] [address] [facility] [address] [place] [address] Jeanmarie Gutierrez DO [address] [facility] [address] [place] [address] Social History Tobacco Use Types Packs/Day Years [...] Date Recorded Patient Health Questionnaire-2 Score 0 12/17/2024 Comments No Sex and Gender Information Value Date Recorded Sex Assigned at Not on file Legal Sex Female 7:18 PM EDT Gender Identity Not on file Sexual Orientation Not on file Occupation Industry Job Start Date Job End Date [employer] Not on file Not on file Not on file documented as of this encounter Plan of Treatment Upcoming Encounters Date Type Department Care Team (Late st Contact Info) Description 04/16/2025 11:30 AM EDT Office Visit [facility] [address] [place] [address] Sierra Rascon, PMHNP-BC [address] [place] [address] 05/16/2025 11:30 AM EDT Office Visit [facility] [address] [place] [address] Sierra Rascon, PMHNP-BC [address] [facility] [address] [place] [address] 06/13/2025 11:30 AM EDT Office Visit [facility] [address] [place] [address] Sierra Rascon HNP-BC [address] [place] [address] 06/17/2025 8:20 AM EDT Office Visit [facility] [address] [place] [phone] Jeanmarie Gutierrez, DO [address] [place] [address] 03/25/2026 11:00 AM EDT Office Visit [facility] [address] [facility] [place] [address] Hernandez Gibson, DO [address] [facility] [place] [address] documented as of this encounter Visit Diagnoses Not on filedocumented in this encounter Additional Health Concerns Assessment Noted Time PHQ-9 Depression Total Score: 13 12/04/ 025 8:35 AM EDT documented as of this encounter Care Teams Bottling Line Attendant Relationship Specialty Start Date End Date Jeanmarie Gutierrez DO [address] [facility] [address] [place] [address] PCP - General Family Medicine 09/04/24 Dinesh Kline DO [address] [place] [address] Legal Assistant Pulmonary Disease 10/23/24 Sierra Rascon PMHNP- [address] [facility] [address] [place] [address] Nurse Practitioner Behavioral Health 10/23/24 documented as of this encounter
--- OUTSIDE RECORDS SUMMARY | 2025-03-21 12:37 | XMS_ITS | Clinical Summary ---
Author Organization [facility] Address [address] [place] [address] Care Team Providers Care Building Supplies Salesperson Retail Name Role Phone Brenda Jeanmarie Dheeraj THOMAS Primary Care Provider [phone] Dinesh Kline DO Unavailable [phone] Sierra Rascon PMHNP- Unavailable + [phone] Allergies Active Allergy Reactions Criticality Noted Date Comments Lurasidone Other 10/23/2024 Suicidal thoughts Risperidone Hives,Rash High 06/08/2021 Other Reaction(s): Slurring of speech, Tremors Other reaction(s): jittery, throat closure, shaking Other Reaction(s): Slurring of speech, Tremors Medications albuterol HFA 90 mcg/act inhaler Inhale 2 puffs every 4 (four) hours if needed for wheezing or shortness of breath Active Levonorgestrel (MIRENA, 52 MG, IU) by Intrauterine route Active paliperidone palmitate ER (Invega Sustenna) 156 MG/ML suspension prefilled syringeIndicat ions:Severe episode of recurrent major depressive disorder, without psychotic features (HCC),DERICK (generalized anxiety disorder),Hist ory of psychosis Inject 156 mg into the shoulder, thigh, or buttocks 1 (one) time for 1 dose Bring in to office. 1.2 mL 3 02/13/20 25 Active nystatin (Mycostatin) 666738 UNIT/GM powderIndicati ons:Intertrigo Apply topically in the morning and before bedtime. 60 g 1 02/28/20 25 2025 Active FLUoxetine (PROzac Weekly) [address] capsuleIndicat ions:Severe episode of recurrent major depressive disorder, without psychotic features (HCC),DERICK (generalized anxiety disorder) Take 1 capsule (90 mg) by mouth every 7 (seven) days Do not crush, chew, or split. 4 capsule 1 03/14/202024 Active sucralfate (Carafate) 1 g tabletIndicati ons:Gastroesop hageal reflux disease without esophagitis Take 1 tablet (1 g) by mouth in the morning and 1 tablet (1 g) at noon and 1 tablet (1 g) in the evening and 1 tablet (1 g) before bedtime. Take before meals. 180 tablet 10/30/192024 Discontinued(O ther) ondansetron (Zofran) 4 MG tabletIndicati ons:Gastroesop hageal reflux disease without esophagitis Take 1 tablet (4 mg) by mouth every 6 (six) hours if needed for nausea or vomiting 20 tablet 10/30/192024 Discontinued(O ther) metFORMIN XR (Glucophage-XR ) 500 MG 24 hr tabletIndicati ons:Prediabete s Take 1 tablet (500 mg) by mouth in the evening. Take with meals Do not crush, chew, or split. 30 tablet 12/18/192024 Discontinued(O ther) pantoprazole (ProtoNix) 40 MG EC tabletIndicati ons:Gastroesop hageal reflux disease without esophagitis Take 1 tablet (40 mg) by mouth in the morning. Take before meals. Do not crush, chew, or split.. 90 tablet 12/18/192024 Discontinued(O ther) FLUoxetine (PROzac) 40 MG capsuleIndicat ions:Severe episode of recurrent major depressive disorder, without psychotic features (HCC),DERICK (generalized anxiety disorder) Take 1 capsule (40 mg) by mouth Daily 30 capsule 02/13/202024 Discontinued methylPREDNISo lone (Medrol Dospak) 4 MG tabletsIndicat ions:Intractab le cluster headache syndrome, unspecified chronicity pattern Take as directed on package. 21 tablet 05/29/20 25 06/11/ 2025 Discontinued Hospital, Clinic, or Other Facility Administered Medication Ordered Dose Route Frequency Start Date End Date Status Levonorgestrel intrauterine deviceIndications:Encounter for IUD insertion IU Daily 03/27/2024 Active paliperidone palmitate ER (Invega Sustenna) injection suspension prefilled syringe 156 mgIndications:Severe episode of recurrent major depressive disorder, without psychotic features (HCC),History of psychosis 156 mg IM Once 03/14/2025 5 Ended Active Problems Problem Noted Date Diagnosed Date Allergy to animals 02/14/2025 Major depression with psychotic features 025 Chronic GERD 02/14/2025 Gastritis 02/14/2025 Headache 02/14/2025 History of psychosis 10/23/2024 Mixed anxiety and depressive disorder 09/04/2024 Obstructive sleep apnea 09/04/2024 Asthma 12/01/2023 Overview (09/04/2024): Last Assessment & Plan: Condition: stable Source of diagnosis: Review of systems, Physical Exam, Medication and Diagnosis confirmed from PCP record and currently active Asthma Guideline Problem: Managing Stress Goal: Member/caregiver/family will recognize 2 stressors and find 2 effective ways of reducing the exposure to them in their everyday life Interventions: Visit Provider provided patient education on how stress may increase asthma symptoms Reviewed trigger avoidance and reviewed proper use of inhalers and rescue medications. Reviewed concerning signs/symptoms and ER precautions. Follow up in: if symptoms worsen or fail to improve and per member's treating providers Morbid (severe) obesity due to excess calories 0 12/01/2023 Overview (09/04/2024): Last Assessment & Plan: Condition: stable Source of diagnosis: Review of systems, Vital signs and Physical Exam Co-morbidities: N/A BMI > 40 Follow up in: if symptoms worsen or fail to improve and per member's treating providers PCOS (polycystic ovarian syndrome) 12/01/2023 Overview (09/04/2024): Last Assessment & Plan: Condition: stable Source of diagnosis: Review of systems, Physical Exam and Diagnosis confirmed from specialist record and currently active Follow up in: if symptoms worsen or fail to improve and per member's treating providers Prediabetes 12/01/2023 Overview (09/04/2024): Last Assessment & Plan: Condition: stable Source of diagnosis: Review of systems, Physical Exam, Medication and Diagnosis confirmed from PCP record and currently active Follow up in: if symptoms worsen or fail to improve and per member's treating providers History of loop electrosurgi moy excision procedure (LEEP) of cervix affecting in first trimester ([facility]) 06/26/2021 Severe episode of recurrent major depressive disorder, with psychotic features 12/19/2013 Resolved Problems Problem Noted Date Diagnosed Date Resolved Date De Quervain's disease (radia l styloid tenosynovitis) 02/14/2025 02/14/2025 Acquired hallux valgus 09/04/202409/04 Bilateral occipital neuralgia 09/04/2024 09/04/2024 Cervical paraspinal muscle spasm 09/04/2024 09/04/2024 Anxiety 12/01/2023 09/04/2024 Overview (09/04/2024): Last Assessment & Plan: Condition: stable Source of diagnosis: Review of systems, Screenings/Questionnaires, Physical Exam, Medication and Diagnosis confirmed from PCP record and currently active Anxiety Guidelines Problem: Anxiety Medication Compliance Goal: Member will take prescribed medication as ordered by provider for the management of anxiety symptoms Interventions: Member will comply with medical plan of care for the management of anxiety, Visit Provider encouraged member to continue to take prescribed anti- anxiety medication and report any side effects to provider Follow up in: if symptoms worsen or fail to improve and per member's treating providers Major depressive disorder, r ecurrent, in partial remission 12/01/2023 09/04/2024 Overview (09/04/2024): Last Assessment & Plan: Condition: stable Source of diagnosis: Review of systems, Screenings/Questionnaires, Physical Exam, Medication and Diagnosis confirmed from PCP record and currently active Mood Guidelines Problem: Depression and Behavioral Health Goal: Member/caregiver/family will recognize and avoid 2 events that may trigger increased depression symptoms Intervention: Visit Provider assessed with member possible barriers that may not allow member to recognize and/or avoid triggers that may cause depression symptoms Follow up in: if symptoms worsen or fail to improve and per member's treating providers Essential hypertension 12/19/201309/04 Encounters Date Type Department Care Team Description 03/21/2025 9:20 AM EDT Office Visit [facility] [address] [place] [address] Hernandez Gibson, Well woman exam with routine gynecological exam 03/21/2025 Bamboo flowsheet [facility] [address] [place] [address] Hernandez Gibson, 03/14/2025 8:00 AM EDT Office Visit [facility] [address] [place] [address] Sierra Rascon, ABBIHNP-ANDRES History of psychosis (Primary Dx); Severe episode of recurrent major depressive disorder, without psychotic features (HCC); DERICK (generalized anxiety disorder) 03/14/2025 Bamboo flowsheet [facility] [address] [place] [address] Sierra Rascon PMHNP-BC 03/14/2025 Travel 03/11/2025 Abstract [facility] [address] [place] [address] Jeanmarie Gutierrez, 02/27/2025 10:00 AM EDT Office Visit [facility] [address] [place] [address] Jeanmarie Gutierrez, DO Intertrigo (Primary Dx) 02/27/2025 Travel 02/14/2025 8:00 AM EDT Office Visit [facility] [address] [place] [address] Jeanmarie Gutierrez, DO Intractable cluster headache syndrome, unspecified chronicity pattern (Primary Dx); Prediabetes; Morbid (severe) obesity due to excess calories ([facility]) 02/14/2025 Travel 02/12/2025 11:30 AM EDT Office Visit [facility] [address] [place] [address] Sierra Rascon, [facility] Severe episode of recurrent major depressive disorder, without psychotic features (HCC); DERICK (generalized anxiety disorder) ; History of psychosis 02/12/2025 Abstract [facility] [address] [place] [address] Oktaha, Jeanmarie L, DO 02/12/2025 Bamboo flowsheet [facility] [address] [place] [address] Sierra Rascon, [facility] 02/12/2025 Travel 02/07/2025 Abstract [facility] [address] [place] [address] Oktaha, Jeanmarie L, DO 02/07/2025 Abstract [facility] [address] [place] [address] Oktaha, Jeanmarie L, DO 02/07/2025 Abstract [facility] [address] [place] [address] Oktaha, Jeanmarie L, DO 01/31/2025 Abstract [facility] [address] [place] [address] Rosario Champagne MA 01/29/[address] [address] [place] [address] Rosario Champagne MA 01/28/2025 9:30 AM EDT Office Visit [facility] [address] [place] [address] Nicki Laureano PA Pain of ovary; Pelvic pain; Yeast infection 01/28/2025 External Result Encounter [facility] External Department Unsolicited Hernandez Gibson, DO 01/28/2025 Bamboo flowsheet [facility] [address] [place] [address] Nicki Laureano PA 01/22/2025 Abstract [facility] [address] [place] [address] ArthurHernandez, DO 01/22/20[address] [facility] [address] [place] [address] ArthurHernandez, DO 01/10/2025 8:00 AM EDT Office Visit [facility] [address] [place] [address] Sierra Rascon, [facility]- Severe episode of recurrent major depressive disorder, without psychotic features (HCC); DERICK (generalized anxiety disorder) ; History of psychosis 01/10/2025 Bamboo flowsheet [facility] [address] [place] [address] Sierra Rascon, [facility]- 01/10/2025 Travel 01/09/2025 Abstract [facility] [address] [place] [address] Jeanmarie Gutierrez, DO 01/09/2025 Telephone [facility] [address] [place] [address] Eugenio Gutierrezothy L, DO 01/08/[address] [facility] [address] [facility] [address] [place] [address] Sierra Rascon, [facility] 01/04/2025 Abstract [facility] [address] [place] [address] Jeanmarie Gutierrez L, DO 01/01/2025 9:10 AM EDT Office Visit [facility] [address] [place] [address] Curtis Collins DPM Onychocryptosis (Primary Dx); Toe pain, right; Abscess of toe, right; Focal hyperhidrosis 01/01/2025 Bamboo flowsheet [facility] [address] [place] [address] Curtis Collins DPM from Last 3 Months Immunizations Immunization Administration Dates Next Due DTP 06/28/1995,05/19/1995,03/12/1991 DTaP, Unspecified 01/02/1996 Hep B, Adolescent or Pediatric 04/29/2003 HiB, unspecified 05/19/1995,03/12/1991 MMR 04/29/2003,05/19/1995 OPV 02/04/1996,06/28/1995,05/19/1995 ,03/12/1991 Td (adult), unspecified 04/29/2003 Family History Medical History Relation Name Comments Asthma Father Hypertension Father Heart disease Maternal Grandfather Cancer Maternal Grandmother Hypertension Maternal Grandmother Hypertension Mother Lucrecia Schizophrenia Mother Lucrecia Seizures Mother Lucrecia Heart disease Paternal Grandfather Hypertension Paternal Grandfather Diabetes Paternal Grandmother Hypertension Paternal Grandmother Relation Name Status Comments Daughter 2 Alive Father Maternal Grandfather Maternal Grandmother Mother Lucrecia Paternal Grandfather Paternal Grandmother Son Alive Social History Tobacco Use Types Packs/Day Years [...] Industry Job Start Date Job End Date [employer] Not on file Not on file Not on file Last Filed Vital Signs Vital Sign Reading Time Taken Comments Blood Pressure 124/76 03/14/2025 8:10 AM EDT Pulse 70 03/14/2025 8:10 AM EDT Temperature 36 C (96.8 F) 02/27/2025 10:10 AM EDT Respiratory Rate 18 01/01/2025 8:33 AM EDT Oxygen Saturation 96% 02/27/2025 10:10 AM EDT Inhaled Oxygen Concentration - - Weight 151 kg (332 lb) 03/14/2025 8:10 AM EDT Height 162.6 cm (5' 4 ) 02/27/2025 10:10 AM EDT Body Mass Index 56.99 02/27/2025 10:10 AM EDT Plan of Treatment Upcoming Encounters Date Type Department Care Team (Late st Contact Info) Description 04/16/2025 11:30 AM EDT Office Visit [facility] [address] [place] [address] Sierra Rascon, PMHNP-BC [address] [place] [address] 05/16/2025 11:30 AM EDT Office Visit [facility] [address] [place] [address] Sierra Rascon, PMHNP-BC [address] [facility] [address] [place] [address] 06/13/2025 11:30 AM EDT Office Visit [facility] [address] [place] [address] Sierra Rascon, PMHNP-BC [address] [facility] [address] [place] [address] 06/17/2025 8:20 AM EDT Office Visit [facility] [address] [place] [address] Jeanmarie Gutierrez [address] [place] [address] 03/25/2026 11:00 AM EDT Office Visit [facility] [address] [place] [address] Hernandez Gibson DO [address] [place] [address] [address] [place], [place] [phone] Health Maintenance Due Date Last Done Comments Influenza Vaccine (#1) 2025 Pap Smear 03/13/2027 03/13/2024, 03/09/2023 Cervical Cancer Screening 03/09/2028 HPV/Cotest 03/09/2028 Procedures Procedure Name Priority Date/Time Associated Diagnosis Comments RECURRENT VAGINITIS (HTRX) Routine 01/28/2025 11:58 AM EDT POCT , URINE Routine 01/28/2025 9:45 AM EDT Pain of ovary POCT URINALYSIS DIPSTICK Routine 01/28/2025 9:45 AM EDT Pain of ovary PAP SMEAR Routine 03/13/2024 12:00 AM EDT from Last 3 Months or Most Recently Relevant to Health Maintenance Results * (ABNORMAL) RECURRENT VAGINITIS (HTRX) (01/28/2025 11:58 AM EDT) ATOPOBIUM VAGINAE 20.323(A) 19.961 - 24.689 ppm 01/29/2025 6:13 AM EDT [facility] ATOPOBIUM VAGINAE Detected(A) 19.961 - 24.689 ppm 01/29/2025 6:13 AM EDT [facility] BVAB 2,3 (BACTERIAL VAGINOSIS ASSOCIATED BACTERIA 2, 3); MOBILUNCUS SPP 0.000 19.961 - 24.689 ppm 01/29/2025 6:13 AM EDT [facility] BVAB 2,3 (BACTERIAL VAGINOSIS ASSOCIATED BACTERIA 2, 3); MOBILUNCUS SPP Not Detected 19.961 - 24.689 ppm 01/29/2025 6:13 AM EDT [facility] ELISA ALBICANS, PARAPSILOSIS, TROPICALIS 0.000 19.961 - 30.770 ppm 01/29/2025 6:13 AM EDT [facility] ELISA ALBICANS, PARAPSILOSIS, TROPICALIS Not Detected 19.961 - 30.770 ppm 01/29/2025 6:13 AM EDT [facility] ELISA GLABRATA 0.000 23.000 - 32.138 ppm 01/29/2025 6:13 AM EDT [facility] ELISA GLABRATA Not Detected 23.000 - 32.138 ppm 01/29/2025 6:13 AM EDT [facility] ELISA KRUSEI 0.000 23.000 - 32.271 ppm 01/29/2025 6:13 AM EDT [facility] ELISA KRUSEI Not Detected 23.000 - 32.271 ppm 01/29/2025 6:13 AM EDT [facility] CHLAMYDIA TRACHOMATIS 0.000 23.000 - 31.467 ppm 01/29/2025 6:13 AM EDT [facility] CHLAMYDIA TRACHOMATIS Not Detected 23.000 - 31.467 ppm 01/29/2025 6:13 AM EDT [facility] GARDNERELLA VAGINALIS 25.933(A) 19.961 - 24.689 ppm 01/29/2025 6:13 AM EDT [facility] GARDNERELLA VAGINALIS Detected(A) 19.961 - 24.689 ppm 01/29/2025 6:13 AM EDT [facility] MEGASPHAERA (TYPES 1, 2) 0.000 19.961 - 24.689 ppm 01/29/2025 6:13 AM EDT [facility] MEGASPHAERA (TYPES 1, 2) Not Detected 19.961 - 24.689 ppm 01/29/2025 6:13 AM EDT [facility] NEISSERIA GONORRHOEAE 0.000 23.000 - 32.117 ppm 01/29/2025 6:13 AM EDT [facility] NEISSERIA GONORRHOEAE Not Detected 23.000 - 32.117 ppm 01/29/2025 6:13 AM EDT [facility] TRICHOMONAS VAGINALIS 0.000 23.000 - 32.119 ppm 01/29/2025 6:13 AM EDT [facility] TRICHOMONAS VAGINALIS Not Detected 23.000 - 32.119 ppm 01/29/2025 6:13 AM EDT [facility] MYCOPLASMA GENITALIUM 0.000 19.961 - 24.689 ppm 01/29/2025 6:13 AM EDT [facility] MYCOPLASMA GENITALIUM Not Detected 19.961 - 24.689 ppm 01/29/2025 6:13 AM EDT [facility] ERMB, C; MEFA 22.285(A) 23.000 - 27.611 ppm 01/29/2025 6:13 AM EDT [facility] ERMB, C; MEFA Detected(A) 23.000 - 27.611 ppm 01/29/2025 6:13 AM EDT [facility] TET B, TET M 18.727(A) 23.000 - 27.778 ppm 01/29/2025 6:13 AM EDT [facility] TET B, TET M Detected(A) 23.000 - 27.778 ppm 01/29/2025 6:13 AM EDT [facility] Tissue 01/28/2025 11:5 8 AM EDT 01/29/2025 1:28 AM EDT Hernandez Gibson DO LAB BLOOD ORDERABLES [facility] [address] [place] [address] * POCT , urine manually resulted (01/28/2025 9:45 AM EDT) Pathologist [facility] Preg Test, Ur Negative Negative Urine 01/28/2025 9:45 AM EDT Nicki LINK POINT OF CARE TEST ENTER/EDIT OR DERABLES Final Result * (ABNORMAL) POCT urinalysis dipstick manually resulted (01/28/2025 9:45 AM EDT) Color, UA Yellow Clarity, UA Clear Glucose, UA Negative Negative - 1999(110) ++++ mg/dL Bilirubin, UA Negative Negative - 4(70) +++ mg/dL Ketones, UA Negative Negative - 160(16) ++++ mg/dL Spec Grav, UA 1.025 1 - 1.03 Blood, UA Negative Negative - 50 Umair/mcL pH, UA 6.5 5 - 9 Protein, UA Negative Negative - 1999(20) ++++ mg/dL Urobilinogen, UA 0.2 0.2 - 12 mg/dL Leukocytes, UA Trace Negative - 500+++ Yee/mcL Nitrite, UA Negative Negative - Positive Urine 01/28/2025 9:45 AM EDT Nicki LINK POINT OF CARE TEST ENTER/EDIT OR DERABLES Final Result * Pap Smear (03/13/2024 12:00 AM EDT) Swab Cervical swab / Unknown Arthur Nurse [facility] LAB CYTOLOGY ORDERABLES Final Result EXTERNAL LAB from Last 3 Months or Most Recently Relevant to Health Maintenance Insurance [employer] Care Teams Building Supplies Salesperson Retail Relationship Specialty Start Date End Date Jeanmarie Gutierrez DO [address] [place] [phone] PCP - General Family Medicine 09/04/24 Dinesh Kline DO [address] [facility] [address] [place] [address] Sales Center Manager Pulmonary Disease 10/23/24 Sierra Rascon, JOVI- [address] [facility] [address] [place] [phone] Nurse Practitioner Behavioral Health 10/23/24
--- OUTSIDE RECORDS SUMMARY | 2025-03-21 12:37 | XMS_ITS | Encounter Summary ---
Author Organization [facility] Address [address] [place] [address] Care Team Providers Care Contract Driver Name Role Phone Jeanmarie Gutierrez DO Primary Care Provider [phone] Dinesh Kline DO Unavailable [phone] RasconGordon chenth [facility]- Unavailable + [phone] Encounter Details Date Type Department Care Team (Late st Contact Info) Description 02/07/2025 Abstract [facility] [address] [facility] [address] [place] [address] Jeanmarie Gutierrez DO [address] [facility] [address] [place] [address] Social History Tobacco Use Types Packs/Day Years [...] Industry Job Start Date Job End Date [employer] Not on file Not on file Not on file documented as of this encounter Plan of Treatment Upcoming Encounters Date Type Department Care Team (Late st Contact Info) Description 04/16/2025 11:30 AM EDT Office Visit [facility] [address] [place] [address] Sierra Rascon, PMHNP-BC [address] [place] [address] 05/16/2025 11:30 AM EDT Office Visit [facility] [address] [place] [address] Sierra Rascon, PMHNP-BC [address] [facility] [address] [place] [address] 06/13/2025 11:30 AM EDT Office Visit [facility] [address] [place] [address] Sierra Rascon HNP-BC [address] [place] [address] 06/17/2025 8:20 AM EDT Office Visit [facility] [address] [place] [address] Jeanmarie Gutierrez, DO [address] [place] [address] 03/25/2026 11:00 AM EDT Office Visit [facility] [address] [facility] [address] Hernandez Gibson, DO [address] [facility] [place] [address] documented as of this encounter Visit Diagnoses Not on filedocumented in this encounter Additional Health Concerns Assessment Noted Time PHQ-9 Depression Total Score: 13 12/04/ 025 8:35 AM EDT documented as of this encounter Care Teams Contract Driver Relationship Specialty Start Date End Date Jeanmarie Gutierrez DO [address] [place] [address] PCP - General Family Medicine 09/04/24 Dinesh Kline DO [address] [facility] [address] [place] [address] Spinning Lathe Operator Hydraulic Pulmonary Disease 10/23/24 Sierra Rascon PMHNP- [address] [facility] [address] [place] [address] Nurse Practitioner Behavioral Health 10/23/24 documented as of this encounter
--- OUTSIDE RECORDS SUMMARY | 2025-03-21 12:37 | XMS_ITS | Encounter Summary ---
Author Organization [facility] Address [address] [place] [address] Care Team Providers Care Genetic Coordinator Name Role Phone Amelia Moody HAND TOOL FILER Primary Care Provider [phone] Jeanmarie Gutierrez DO Primary Care Provider [phone] Dinesh Kline DO Unavailable [phone] Sierra Rascon PMHNP-BC Unavailable Encounter Details Date Type Department Care Team (Late st Contact Info) Description 02/24/2023 Abstract [facility] 112 [facility] 120 [place] [address] Curtis Collins, DPFelipe 3006 [facility] 5 [place] [address] Social History Tobacco Use Types Packs/Day Years Used Date Smoking Tobacco: Never Assessed Comments Unknown Sex and Gender Information Value Date Recorded Sex Assigned at Not on file Legal Sex Female 7:18 PM EDT Gender Identity Not on file Sexual Orientation Not on file documented as of this encounter Plan of Treatment Upcoming Encounters Date Type Department Care Team (Late Contact Info) Description 04/16/2025 11:30 AM EDT Office Visit [facility] [address] [place] [address] Sierra Rascon PMHNP-BC 112 [facility] 160 [place] [address] 05/16/2025 11:30 AM EDT Office Visit [facility] [address] [place] [address] RasconShannan chendith, [facility]- [address] [facility] [address] [place] [address] 06/13/2025 11:30 AM EDT Office Visit [facility] [address] [place] [address] Sierra Rascon, [facility] [address] [facility] [address] [place] [address] 06/17/2025 8:20 AM EDT Office Visit [facility] [address] [place] [address] Jeanmarie Gutierrez DO [address] [place] [address] 03/25/2026 11:00 AM EDT Office Visit [facility] OB [address] [facility] [address] Hernandez Gibson, [address] [facility] [place] [address] documented as of this encounter Visit Diagnoses Not on filedocumented in this encounter Care Teams Genetic Coordinator Relationship Specialty Start Date End Date Amelia Moody, HAND TOOL FILER PCP - General 03/09/23 09/03/24 Jeanmarie Gutierrez DO [address] [place] [address] PCP - General Family Medicine 09/04/24 Dinesh Kline DO [address] [facility] [address] [place] [address] Felt Cementer Pulmonary Disease 10/23/24 Sierra Rascon, [facility]- [address] [facility] [address] [place] [address] Nurse Practitioner Behavioral Health 10/23/24 documented as of this encounter
--- OUTSIDE RECORDS SUMMARY | 2025-03-21 12:37 | XMS_ITS | Encounter Summary ---
Author Organization [facility] Address [address] [place] [address] Care Team Providers Care Golf Caddie Name Role Phone Jeanmarie Gutierrez DO Primary Care Provider + [phone] Dinesh Kline DO Unavailable [phone] RasconShannan chendith [facility]- Unavailable + [phone] Encounter Details Date Type Department Care Team (Late st Contact Info) Description 02/12/2025 Abstract [facility] [address] [facility] [address] [place] [address] Jeanmarie Gutierrez DO [address] [facility] 230 [place] [address] Social History Tobacco Use Types Packs/Day Years [...] Date Recorded Patient Health Questionnaire-2 Score 0 02/14/2025 Comments No Sex and Gender Information Value Date Recorded Sex Assigned at Not on file Legal Sex Female 7:18 PM EDT Gender Identity Not on file Sexual Orientation Not on file Occupation Industry Job Start Date Job End Date [place] Not on file Not on file Not on file documented as of this encounter Functional Status * Over the past 2 weeks, how often have you been bothered by any of the following problems? Question Answer Date of Assessment Author Little interest or pleasure in doing things Not at all 02/14/2025 8:03 AM EDT Christina Lujan MA Feeling down, depressed, or hopeless Not at all 02/14/2025 8:03 AM EDT Christina Lujan MA Patient Health Questionnaire -2 Score 0 02/14/2025 8:03 AM EDT Christina Lujan MA documented as of this encounter Plan of Treatment Upcoming Encounters Date Type Department Care Team (Late st Contact Info) Description 04/16/2025 11:30 AM EDT Office Visit [facility] [address] [place] [address] Sierra Rascon PMHNP-BC [address] [facility] [address] [place] [address] 05/16/2025 11:30 AM EDT Office Visit [facility] [address] [place] [address] Sierra Rascon PMHNP-BC [address] [facility] [address] [place] [address] 06/13/2025 11:30 AM EDT Office Visit [facility] [address] [place] [address] Sierra Rascon PMHNP-BC [address] [place] [address] 06/17/2025 8:20 AM EDT Office Visit [facility] [address] [place] [address] Jeanmarie Gutierrez DO [address] [place] [address] 03/25/2026 11:00 AM EDT Office Visit [facility] [address] [facility] [place] [address] Hernandez Gibson, DO [address] [facility] [address] documented as of this encounter Visit Diagnoses Not on filedocumented in this encounter Additional Health Concerns Assessment Noted Time PHQ-9 Depression Total Score: 13 025 8:35 AM EDT documented as of this encounter Care Teams Golf Caddie Relationship Specialty Start Date End Date Jeanmarie Gutierrez DO [address] [email or web address] [address] [place] [address] PCP - General Family Medicine 09/04/24 Dinesh Kline DO [address] [facility] [[email or web address] [address] [place] [address] Adapted Physical Education Aide Pulmonary Disease 10/23/24 Sierra Rascon PMHNP- [address] [facility] [address] [place] [address] Nurse Practitioner Behavioral Health 10/23/24 documented as of this encounter
--- OUTSIDE RECORDS SUMMARY | 2025-03-21 12:37 | XMS_ITS | Encounter Summary ---
Author Organization [facility] Address [address] [place] [address] Care Team Providers Care Assembler Gold Frame Name Role Phone Jeanmarie Gutierrez DO Primary Care Provider + [phone] Dinesh Kline DO Unavailable [phone] AbiodunShannanSierra [facility]- Unavailable + [phone] Encounter Details Date Type Department Care Team (Late st Contact Info) Description 03/21/2025 Bamboo flowsheet [facility] [address] [place] [address] Hernandez Gibson DO [address] [place], [facility] Social History Tobacco Use Types Packs/Day Years [...] Industry Job Start Date Job End Date [place] Not on file Not on file Not on file documented as of this encounter Plan of Treatment Upcoming Encounters Date Type Department Care Team (Late st Contact Info) Description 04/16/2025 11:30 AM EDT Office Visit [facility] [address] [place] [address] Sierra Rascon, PMHNP-BC [address] [place] [address] 05/16/2025 11:30 AM EDT Office Visit [facility] [address] [place] [address] Sierra Rascon PMHNP-BC [address] [facility] [address] [place] [address] 06/13/2025 11:30 AM EDT Office Visit [facility] [address] [place] [address] Sierra Rascon HNP-BC [address] [facility] [address] [place] [address] 06/17/2025 8:20 AM EDT Office Visit [facility] [address] [place] [address] Jeanmarie Gutierrez, DO [address] [place] [address] 03/25/2026 11:00 AM EDT Office Visit [facility] OB [address] [facility] [place] [address] Hernandez Gibson DO [address] [place] [address] [place] [address] documented as of this encounter Visit Diagnoses Not on filedocumented in this encounter Additional Health Concerns Assessment Noted Time PHQ-9 Depression Total Score: 13 12/04/ 025 8:35 AM EDT documented as of this encounter Care Teams Assembler Gold Frame Relationship Specialty Start Date End Date Jeanmarie Gutierrez DO [address] [place] [address] PCP - General Family Medicine 09/04/24 Dinesh Kline DO [address] [place] [address] Strand Buncher Fine Wire Pulmonary Disease 10/23/24 Sierra Rascon PMHNP- 112 [facility] 160 [place] [address] Nurse Practitioner Behavioral Health 10/23/24 documented as of this encounter
--- OUTSIDE RECORDS SUMMARY | 2025-03-21 12:37 | XMS_ITS | Encounter Summary ---
Author Organization [facility] Address [address] [place] [address] Care Team Providers Care Funeral Planning Counselor Name Role Phone CalistogaJeanmarie pineda Dheeraj DO Primary Care Provider + [phone] Dinesh Kline DO Unavailable [phone] Sierra Rascon [facility]- Unavailable + [phone] Encounter Details Date Type Department Care Team (Latest Contact Info) Description 03/14/2025 Travel Social History Tobacco Use Types Packs/Day Years [...] Industry Job Start Date Job End Date [place] Not on file Not on file Not on file documented as of this encounter Plan of Treatment Upcoming Encounters Date Type Department Care Team (Late st Contact Info) Description 04/16/2025 11:30 AM EDT Office Visit [facility] [address] [place] [address] Sierra Rascon, [facility] [address] [place] [address] 05/16/2025 11:30 AM EDT Office Visit [facility] [address] [place] [address] Sierra Rascon, HNP-BC [address] [place] [address] 06/13/2025 11:30 AM EDT Office Visit [facility] [address] [place] [address] Sierra Rascon, HNP-BC [address] [facility] [address] [place] [address] 06/17/2025 8:20 AM EDT Office Visit [facility] [address] [place] [address] Jeanmarie Gutierrez DO [address] [place] [address] 03/25/2026 11:00 AM EDT Office Visit [facility] OB [address] [facility] [place] [address] Hernandez Gibson DO [address] [facility] [address] [place], [place] [address] documented as of this encounter Visit Diagnoses Not on filedocumented in this encounter Additional Health Concerns Assessment Noted Time PHQ-9 Depression Total Score: 13 0318/2 025 8:35 AM EDT documented as of this encounter Care Teams Funeral Planning Counselor Relationship Specialty Start Date End Date Jeanmarie Gutierrez DO [address] [place] [address] PCP - General Family Medicine 09/04/24 Dinesh Kline DO [address] [facility] 230 [place] [address] Vehicle And Equipment Cleaner Pulmonary Disease 10/23/24 Sierra Rascon PMHNP- 112 [facility] 160 [place] [address] Nurse Practitioner Behavioral Health 10/23/24 documented as of this encounter
--- OUTSIDE RECORDS SUMMARY | 2025-03-21 12:37 | XMS_ITS | Patient Health Record ---
Author Organization [facility] Address [address] [place] [address] Care Team Providers Care Director Of Solutions Architecture Name Role Phone ChanRoxana guerreroa Primary Care Provider Sarika Youngblood Unavailable [phone] Dr. Dayron Onofre Unavailable [phone] Abigail Villalba Unavailable [phone] Christina Saucedo Unavailable [phone] Allergies Allergen (clinical drug ingredient) Drug/Non Drug Allergy documented on EMR Reaction Allergy Type Onset Date Status risperidone Risperdal jittery, throat closure, shaking Drug Allergy Active Results Component Value Reference Range Notes COVID-19 / Flu A/B / RSV PCR Reviewed date:07/05/2024 09:06:22 AM Interpretation: Performing Lab:, [facility], [address] [place] [address] [place] Notes/Report: COVID-19 Cepheid Result Negative for KERRIE S-CoV-2 RNA by RT-PCR Flu A Cepheid Result Negative for Flu A RNA by RT-PCR Flu B Cepheid Result Negative for Flu B RNA by RT-PCR RSV Cepheid Result Negative for RSV RNA by RT-PCR COVID19 Blank Space Reference: Negative COVID19 Blank Space Cepheid Disclaimer The Cepheid Xpert Xp ress CoV-2/Flu/RSV Plus has Cepheid Disclaimer not been FDA cleared or approved; this test has Cepheid Disclaimer been authorized by [employer] under an EUA for use by Cepheid Disclaimer authorized laborator ies; this test has been Cepheid Disclaimer authorized only for the simultaneous qualitative Cepheid Disclaimer detection and differ entiation of nucleic acids from Cepheid Disclaimer SARS-CoV-2, influenz a A, influenza B, and Cepheid Disclaimer respiratory syncytia l virus (RSV), and not for any Cepheid Disclaimer other viruses or pat hogens; and this test is only Cepheid Disclaimer authorized for the d uration of the declaration that Cepheid Disclaimer circumstances exist justifying the authorization of Cepheid Disclaimer emergency use of in vitro diagnostic tests for Cepheid Disclaimer detection and/or wiley gnosis of COVID-19 under Cepheid Disclaimer Section 564(b)(1) of the Act, 21 U.S.C. 360bbb- Cepheid Disclaimer 3(b)(1), unless the authorization is terminated or Cepheid Disclaimer revoked sooner. COVID-19 PCR Reviewed date:07/05/2024 09:06:36 AM Interpretation: Performing Lab:, [facility], [address], [place] Notes/Report: This is a duplicate Cepheid Xpert Xpress CoV-2/Flu/RSV Plus RNA by RT-PCR result to be used for statistical tracking purpose only. Cepheid COVID PCR Negative Negative Negative Reason For Referral No Information Medications Medication SIG (Take, Route, Frequency, Duration) Notes Start Date End Date Status Lurasidone HCl 40 MG 1 tablet in the gilberto anne with food Orally Once a day; Duration: 30 days 08/09/2023 Not-Takin g Omeprazole 40 MG TAKE [address] [facility] ONCE DAILY 30 MINUTES BEFORE MORNING MEAL; Duration: 60 Not-Taking Viibryd 20 MG 1 tablet with food Orally Once a day; Duration: 30 day(s) 03/09/2023 Not-Taking FLUoxetine HCl 40 MG 1 capsule Orally On ce a day; Duration: 30 days 04/03/2024 Not-Takin g lamoTRIgine 25 MG TAKE 1 TABLET BY [facility] ONCE DAILY UNTIL 07/08/23 & THEN TAKE 2 TABS UNTIL NEXT APPOINTMENT DIRECTED; Duration: 30 Not-Taking hydrOXYzine HCl 25 MG 1 tablet as needed Orally 3 times a day as needed for anxiety; Duration: 30 days 03/13/2024 Not-Taking Paliperidone ER 6 MG 1 tablet in the mor anne Orally Once a day 04/08/2023 Not-Taking Invega Sustenna 234 MG/1.5ML as directed Intramuscular once a maonth 08/30/2023 Not-Taking Lexapro 5 MG 1 tablet Orally Once a day; Duration: 30 day(s) 03/02/2023 Not-Sincere ing Venlafaxine HCl ER 75 MG 1 capsule with food Orally Once a day; Duration: 30 days 01/11/2024 Not-Taking ARIPiprazole 2 MG TAKE 1 TABLET BY [facility] IN THE MORNING Oral; Duration: 30 Not-Taking DULoxetine HCl 30 MG 1 capsule Orally On ce a day; Duration: 30 days 03/28/2024 Not-Petr forbes Sertraline HCl 100 MG TAKE 1 TABLET BY M OUTH IN THE MORNING Oral; Duration: 30 Not-Taking Ventolin HFA 108 (90 Base) MCG/ACT 2 puffs as needed Inhalation every 4 hrs 06/25/2015 Active busPIRone HCl 10 MG 1 tablet Orally Twic e a day; Duration: 30 days Not-Petr leidy Invega Sustenna 234 MG/1.5ML 1.5 mL Intramuscular; Duration: 30 days 07/24/2024 Active Venlafaxine HCl ER 75 MG 1 capsule with food Orally Once a day; Duration: 30 day(s) 03/06/2024 Not-Taking OLANZapine 5 MG 1 tablet every night and once a day as needed for anxiety Orally as directed; Duration: 30 days 07/24/2024 Active Phentermine HCl 37.5 MG 1 tablet before breakfast Orally Once a day; Duration: 30 days 01/09/2024 Not-Petr leidy Multi Complete - as directed Orally Not-Taking Magnesium Oxide Not- Taking Pulmicort Flexhaler Not-Taking Problems Problem Type SNOMED Code ICD Code Onset Dates Problem Status W/U Status Risk Notes Problem Gastroesophageal reflux disease (disorder) (578310383) Chronic GERD (K21.9) Active confirmed Problem Episodic mood disorder (00606515808695) Episodic mood disorder (F39) Active confirmed Problem Body mass index 40+ - severely obese (105605306) BMI 50.0-59.9, adult (Z68.43) Active confirmed Problem History of hypertension (928744644) History of hypertension (Z86.79) Active confirmed Problem Prediabetes (782284570) Prediabetes (R73.03) Active confirmed Problem Obesity (448495492) Obesity due to excess calories without serious comorbidity, unspecified classification (E66.09) Active confirmed Problem Severe major depression, single episode, without psychotic features (04334555) Major depressive disorder, single episode, severe without psychotic features (F32.2) Active confirmed Problem Generalized anxiety disorder (08740088) Generalized anxiety disorder (F41.1) Active confirmed Problem Asthma without status asthmaticus (36576901) Uncomplicated asthma, unspecified asthma severity, unspecified whether persistent (J45.909) Active confirmed Problem Body mass index 40+ - morbidly obese (897833722) Body mass index [BMI] 50.0-59.9, adult (Z68.43) Active confirmed Problem Major depression with psychotic features (180956072) Major depression with psychotic features (F32.3) Active confirmed Vital Signs Heart Rate 82 /min 07/24/2024 Temperature 97.1 degrees Fahrenheit 07/24/2024 Oximetry 94 % 07/24/2024 Blood pressure diastolic 91 mm Hg 07/24/2024 Height 64.75 in 07/24/2024 Blood pressure systolic 142 mm Hg 07/24/2024 Weight 342 lbs 07/24/2024 BMI 57.35 kg/m2 07/24/2024 Encounters Encounter Location Date Provider Diagnosis [address] [address] 03/28/2024 Sarika Slingwine Generalized anxiety disorder F41.1 and Major depression with psychotic features F32.[address] [address] 05/18/2024 Sarika Slingwine Generalized anxiety disorder F41.1 ; Major depression with psychotic features F32.3 ; Major depressive disorder, single episode, severe without psychotic features F32.2 and Chronic depression F32.A [facility] [address] [address] 07/24/2024 Sarika Slingwine Generalized anxiety disorder F41.1 ; Major depression with psychotic features F32.3 and Episodic mood disorder F39 [facility] [address] [facility] [place] [address] 04/11/2024 Sarika Slingwine Chronic depression F32.A ; Generalized anxiety disorder F41.1 and Major depression with psychotic features F32.3 [facility] [address] [place] [address] 04/30/2024 Sarika Slingwine [address] [place] [address] 05/15[facility] [place] [address] [place] [address] 08/20/20[facility] [place] [address] [place] [address] 08/23/2024 [facility] [address] [place] [address] 09/04/2024 [facility] [place] [address] [place] [address] 03/21/2024 [place] [address] [place] [address] 03/26/2024 Sarika Slingwine [address] [place] [address] 03/27/2024 Sarika ingwine [facility] [place] [address] 03/28/2024 [place] [address] [place] [address] 03/28/20[facility] [place] [address] 04/03/2024 Sarika Slingwine Assessments Encounter Date Diagnosis (ICD Code) Assessment Notes Treatment Notes Treatment Clinical Notes Section Notes 03/28/2024 Generalized anxiety disorder (ICD-10 - F41.1) 04/11/2024 Chronic depression (ICD-10 - F32.A) 05/18/2024 Generalized anxiety disorder (ICD-10 - F41.1) 07/24/2024 Generalized anxiety disorder (ICD-10 - F41.1) 07/24/2024 Major depression with psychotic features (ICD-10 - F32.3) 05/18/2024 Major depression with psychotic features (ICD-10 - F32.3) Pt assistance program provided Invega Sustenna 234mg/1.5mL. Injected prefilled syringe IM in pt's RIGHT DELTOID as she had a small lump on her left deltoid which was tender to the touch for pt. Pt tolerated injection well, no adverse effects. LOT: [id number] EXP: 08/2025 H.MANUEL Ace 07/24/2024 Episodic mood disorder (ICD-10 - F39) Pt assistance program provided Invega Sustenna 234mg/1.5mL prefilled syringe. Injected IM in pt's LEFT DELTOID. Pt tolerated well. No adverse effects. LOT: [id number] EXP: 06/2025 Rachael.MANUEL Ace 03/28/2024 Major depression with psychotic features (ICD-10 - F32.3) Pt provided Invega Sustenna 234mg/1.5mL prefilled syringe. Injected in pt's RIGHT DELTOID. Pt tolerated well. No adverse effects. LOT: [id number] EXP: 06/2025 Rachael.MANUEL Ace 04/11/2024 Generalized anxiety disorder (ICD-10 - F41.1) 04/11/2024 Major depression with psychotic features (ICD-10 - F32.3) 05/18/2024 Major depressive disorder, single episode, severe without psychotic features (ICD-10 - F32.2) 05/18/2024 Chronic depression (ICD-10 - F32.A) 03/28/2024 Other follow up in 2 weeks Hydroxyzine: Made aware that the med will cause sedation, dry mouth, and urinary retention. Do not take before driving a car until you know how the med will affect you. Do not take the medication if . Do not take with other WARD SU[employer] depressants. Call 911 for difficulty breathing. Educated on new antidepressant. Made aware of Black Box Warning that it can increase suicidal thoughts, especially in minors. If this happens go to the ER. Make the office aware or go to the ER, if you experience seizures or an increase in activity and irritability. Made aware to not abruptly stop medication. Medication can cause headache and nausea. . Denies suicidal or homicidal ideation or plan. No morbid thoughts. Interpersonal issues discussed. Support provided Insight oriented/ Behavior modifying/ Supportive therapy . Patient educated on new antipsychotic dosing schedule and side effects. Made aware to not abruptly stop the medication. Made aware to notify the office or go to the ER if experience any abnormal repetitive movements. Also, made aware to notify office of any nausea, vomiting, or dizziness. Made aware to not stop medication abruptly. This is an FDA approved use for this medication. Discussed with patient crisis plan. Provided crisis hotline number. [place] has good [place]. Made aware to contact office if has an increase in suicidal thoughts. If outside of office hours, patient to go to the ER. Patient will call the office with any questions or concerns. Patient educated about the importance of adequate sleep to your mental health. The bedroom should be kept dark to promote restful sleep. The patient should not use their phone or watch TV while in bed, these behaviors can be stimulating and keep the patient awake. . Informed consent obtained: YES, we discussed the diagnosis/diagnoses , the treatment options, treatment(s) recommended vs. no treatment. We discussed risks and benefits of treatment options, treatment recommendations vs. no treatment. . 04/11/2024 Other follow up in 6 weeks Educated on new antidepressant. Made aware of Black Box Warning that it can increase suicidal thoughts, especially in minors. If this happens go to the ER. Make the office aware or go to the ER, if you experience seizures or an increase in activity and irritability. Made aware to not abruptly stop medication. Medication can cause headache and nausea. . Denies suicidal or homicidal ideation or plan. No morbid thoughts. Interpersonal issues discussed. Support provided Insight oriented/ Behavior modifying/ Supportive therapy . Patient educated about the importance of adequate sleep to your mental health. The bedroom should be kept dark to promote restful sleep. The patient should not use their phone or watch TV while in bed, these behaviors can be stimulating and keep the patient awake. . Informed consent obtained: YES, we discussed the diagnosis/diagnoses , the treatment options, treatment(s) recommended vs. no treatment. We discussed risks and benefits of treatment options, treatment recommendations vs. no treatment. Hydroxyzine: Made aware that the med will cause sedation, dry mouth, and urinary retention. Do not take before driving a car until you know how the med will affect you. Do not take the medication if . Do not take with other WARD SUPERVISOR depressants. Call 911 for difficulty breathing. . Patient educated on new antipsychotic dosing schedule and side effects. Made aware to not abruptly stop the medication. Made aware to notify the office or go to the ER if experience any abnormal repetitive movements. Also, made aware to notify office of any nausea, vomiting, or dizziness. Made aware to not stop medication abruptly. This is an FDA approved use for this medication. Discussed with patient crisis plan. Provided crisis hotline number. [facility] has good support system. Made aware to contact office if has an increase in suicidal thoughts. If outside of office hours, patient to go to the ER. Patient will call the office with any questions or concerns. 05/18/2024 Other follow up in 1 month Hydroxyzine: Made aware that the med will cause sedation, dry mouth, and urinary retention. Do not take before driving a car until you know how the med will affect you. Do not take the medication if . Do not take with other WARD SUPER[employer]OR depressants. Call 911 for difficulty breathing. Educated on new antidepressant. Made aware of Black Box Warning that it can increase suicidal thoughts, especially in minors. If this happens go to the ER. Make the office aware or go to the ER, if you experience seizures or an increase in activity and irritability. Made aware to not abruptly stop medication. Medication can cause headache and nausea. . Denies suicidal or homicidal ideation or plan. No morbid thoughts. Interpersonal issues discussed. Support provided Insight oriented/ Behavior modifying/ Supportive therapy . Patient educated on new antipsychotic dosing schedule and side effects. Made aware to not abruptly stop the medication. Made aware to notify the office or go to the ER if experience any abnormal repetitive movements. Also, made aware to notify office of any nausea, vomiting, or dizziness. Made aware to not stop medication abruptly. This is an FDA approved use for this medication. Discussed with patient crisis plan. Provided crisis hotline number. [facility] has good support system. Made aware to contact office if has an increase in suicidal thoughts. If outside of office hours, patient to go to the ER. Patient will call the office with any questions or concerns. Patient educated about the importance of adequate sleep to your mental health. The bedroom should be kept dark to promote restful sleep. The patient should not use their phone or watch TV while in bed, these behaviors can be stimulating and keep the patient awake. . Informed consent obtained: YES, we discussed the diagnosis/diagnoses , the treatment options, treatment(s) recommended vs. no treatment. We discussed risks and benefits of treatment options, treatment recommendations vs. no treatment. . 07/24/2024 Other follow up in 1 month Patient educated on new antipsychotic dosing schedule and side effects. Made aware to not abruptly stop the medication. Made aware to notify the office or go to the ER if experience any abnormal repetitive movements. Also, made aware to notify office of any nausea, vomiting, or dizziness. Made aware to not stop medication abruptly. This is an FDA approved use for this medication. Discussed with patient crisis plan. Provided crisis hotline number. [facility] has good support system. Made aware to contact office if has an increase in suicidal thoughts. If outside of office hours, patient to go to the ER. Patient will call the office with any questions or concerns. Patient educated about the importance of adequate sleep to your mental health. The bedroom should be kept dark to promote restful sleep. The patient should not use their phone or watch TV while in bed, these behaviors can be stimulating and keep the patient awake. . Informed consent obtained: YES, we discussed the diagnosis/diagnoses , the treatment options, treatment(s) recommended vs. no treatment. We discussed risks and benefits of treatment options, treatment recommendations vs. no treatment. . Plan Of Treatment No Information Insurance Providers Payer Name Payer Address Payer Phone Subscriber Number Group Number Insured Name Patient Relationship to Insured Coverage Start Date Coverage End Date [employer] [place] Medicaid [address] [place] [address] [id number] IDALIA GUTIERREZ Self - patient is the insured 4 Wrap [facility] [address] [place] [address] [id number] IDALIA GUTIERREZ Self - patient is the insured 4 zCARESODANO CE-termed 22 [address] [place] [address] [id number] HODGKINSO N, CHASTITY Self - patient is the insured 2 3 zMEDICAID CFC after [employer] E-termed 22 [address] [place] [address] [id number] HODGKINSO N, CHASTITY Self - patient is the insured 2 3 zDENTAL DQ [employer] E-termed 22 [address] [place] [address] [id number] HODGKINSO N, CHASTITY Self - patient is the insured 0 3 zDental MEDICAID CFC after [employer] E-termed 22 [address] [place] [address] [id number] HODGKINSO N, CHASTITY Self - patient is the insured 0 3 BH [employer] e [place] Medicaid [address] [place] [address] [id number] HODGKINSO N, CHASTITY Self - patient is the insured 3 3 BH Wrap C[employer] [address] [place] [address] [id number] HODGKINSO N, CHASTITY Self - patient is the insured 3 3 Dental [employer] DQ [place] [address] [place] [address] [id number] HODGKINSO N, CHASTITY Self - patient is the insured 3 3 Dental Wrap C[employer] [address] [place] [address] [id number] HODGKINSO N, CHASTITY Self - patient is the insured 3 3 BH MEDICAID [place] [address] [place] [address] [id number] IDALIA GUTIERREZ Self - patient is the insured 3 3 DENTAL MEDICAID [place] [address] [place] [address] [id number] IDALIA GUTIERREZ Self - patient is the insured 3 3 JODI MEYERS [address] [address] [place] [address] [id number] IDALIA GUTIERREZ Self - patient is the insured 4 4 Medications Administered Medication Instructions Date of Administration Dosage Notes Rocephin IM 12/23/2011 Medical (General) History Medical History History ICD Code asthma hypertension chronic depression Anxiety disorder Surgical History Surgery Date(Month/Year) cyst removal-wrist x2 cholecystectomy Hospitalization History Reason Date(Month/Year) Ernestina emerson [facility] 2013 2-3x
--- OUTSIDE RECORDS SUMMARY | 2025-03-21 12:37 | XMS_ITS | Encounter Summary ---
Author Organization [facility] Address [address] [place] [address] Care Team Providers Care Detective Youth Bureau Name Role Phone Amelia Moody INTERNAL GRINDING MACHINE OPERATOR Primary Care Provider [phone] Jeanmarie Gutierrez DO Primary Care Provider [phone] Dinesh Kline DO Unavailable [phone] Sierra Rascon HNP- Unavailable [phone] Encounter Details Date Type Department Care Team (Late st Contact Info) Description 06/19/2023 Abstract [facility] [address] [place] [address] Nicki Laureano PA [address] [place], [place] [id number] Social History Tobacco Use Types Packs/Day Years [...] 04/16/2025 11:30 AM EDT Office Visit [facility] [address] [place] [address] Sierra Rascon, HNP-BC [address] [facility] [address] [place] [address] 05/16/2025 11:30 AM EDT Office Visit [facility] [address] [place] [address] Sierra Rascon, HNP-BC [address] [facility] [address] [place] [address] 06/13/2025 11:30 AM EDT Office Visit [facility] [address] [place] [address] Sierra Rascon, HNP-BC [address] [facility] [address] [place] [address] 06/17/2025 8:20 AM EDT Office Visit [facility] [address] [facility] [address] [place] [address] Jeanmarie Gutierrez, [address] [place] [address] 03/25/2026 11:00 AM EDT Office Visit [facility] [address] [address] Hernandez Gibson DO [address] [place] [address] documented as of this encounter Visit Diagnoses Not on filedocumented in this encounter Care Teams Detective Youth Bureau Relationship Specialty Start Date End Date Amelia Moody, INTERNAL GRINDING MACHINE OPERATOR PCP - General 03/09/23 09/03/24 Jeanmarie Gutierrez DO [address] [place] [address] PCP - General Family Medicine 09/04/24 Dinesh Kline DO [address] [place] [address] Electrical Software Engineer Pulmonary Disease 10/23/24 Sierra Rascon, KAI- [address] [facility] [address] [place] [address] Nurse Practitioner Behavioral Health 10/23/24 documented as of this encounter
--- OUTSIDE RECORDS SUMMARY | 2025-03-21 12:37 | XMS_ITS | Encounter Summary ---
Author Organization [facility] Address [address] [place] [address] Care Team Providers Care Vendor Manager Name Role Phone Amelia Moody NP Primary Care Provider + [phone] Jeanmarie Gutierrez DO Primary Care Provider [phone]- [phone] Dinesh Kline DO Unavailable [phone] Sierra Rascon [facility]- Unavailable [phone] Encounter Details Date Type Department Care Team (Late st Contact Info) Description 08/30/2024 Orders Only [facility] FM [address] [facility] [address] [place] [address] Christiane Lindsey NP [address] [facility] [address] [place] [address] Social History Tobacco Use Types Packs/Day Years Used Date Smoking Tobacco: Never Alcohol Use Standard Drinks/Week Comments Never 0 (1 standard drink = 0.6 oz pur e alcohol) Caffeine: >4 cups/day; soda Education Answer Date Recorded What is the highest level of school you have completed or the highest degree you have received? 11th grade 03/08/2023 Comments No Sex and Gender Information Value Date Recorded Sex Assigned at Not on file Legal Sex Female 7:18 PM EDT Gender Identity Not on file Sexual Orientation Not on file documented as of this encounter Plan of Treatment Upcoming Encounters Date Type Department Care Team (Late st Contact Info) Description 04/16/2025 11:30 AM EDT Office Visit [facility] [address] [place] [address] Sierra Rascon, [facility] [address] [facility] [address] [place] [address] 05/16/2025 11:30 AM EDT Office Visit [facility] [address] [place] [address] Sierra Rascon, [facility] [address] [facility] [address] [place] [address] 06/13/2025 11:30 AM EDT Office Visit [facility] [address] [place] [address] Sierra Rascon, HNP- [address] [facility] [address] [place] [address] 06/17/2025 8:20 AM EDT Office Visit [facility] [address] [facility] [address] [place] [address] Jeanmarie Gutierrez, [address] [place] [address] 03/25/2026 11:00 AM EDT Office Visit [facility] [address] [place] [address] Hernandez Gibson DO [address] [place], [place] [id number] documented as of this encounter Visit Diagnoses Not on filedocumented in this encounter Care Teams Vendor Manager Relationship Specialty Start Date End Date Amelia Moody, CREDIT DEPARTMENT MANAGER PCP - General 03/09/23 09/03/24 Jeanmarie Gutierrez DO [address] [place] [address] PCP - General Family Medicine 09/04/24 Dinesh Kline DO [address] [place] [address] Superintendent Ammunition Storage Pulmonary Disease 10/23/24 Sierra Rascon, KAI- [address] [facility] 160 [place] [address] Nurse Practitioner Behavioral Health 10/23/24 documented as of this encounter
--- OUTSIDE RECORDS SUMMARY | 2025-03-21 12:37 | XMS_ITS | Encounter Summary ---
Author Organization [facility] Address [address] [place] [address] Care Team Providers Care Director Of Public Health Name Role Phone [place]Jeanmarie pineda Dheeraj DO Primary Care Provider [phone] Dinesh Kline DO Unavailable [phone] Sierra Rascon HNP-BC Unavailable + [phone] Encounter Details Date Type Department Care Team (Late st Contact Info) Description 03/14/2025 Bamboo flowsheet [facility] [address] [facility] [address] [place] [address] Sierra Rascon [facility] [address] [place] [address] Social History Tobacco Use Types Packs/Day Years [...] Industry Job Start Date Job End Date [place] Not on file Not on file Not on file documented as of this encounter Plan of Treatment Upcoming Encounters Date Type Department Care Team (Late st Contact Info) Description 04/16/2025 11:30 AM EDT Office Visit [facility] [address] [place] [address] Sierra Rascon, [facility] [address] [facility] [address] [place] [address] 05/16/2025 11:30 AM EDT Office Visit [facility] [address] [place] [address] Sierra Rascon [facility] [address] [facility] [address] [place] [address] 06/13/2025 11:30 AM EDT Office Visit [facility] [address] [place] [address] Sierra Rascon, [facility] [address] [facility] [address] [place] [address] 06/17/2025 8:20 AM EDT Office Visit [facility] [address] [place] [address] Jeanmarie Gutierrez, DO [address] [place] [address] 03/25/2026 11:00 AM EDT Office Visit [facility] [address] [place] [address] Hernandez Gibson DO [address] [place] [address] [address] [place], [place] [address] documented as of this encounter Visit Diagnoses Not on filedocumented in this encounter Additional Health Concerns Assessment Noted Time PHQ-9 Depression Total Score: 13 12/04/ 025 8:35 AM EDT documented as of this encounter Care Teams Director Of Public Health Relationship Specialty Start Date End Date Jeanmarie Gutierrez DO [address] [place] [address] PCP - General Family Medicine 09/04/24 Dinesh Kline DO [address] [place] [address] Brake Repair Supervisor Pulmonary Disease 10/23/24 Sierra Rascon PMHNP- [address] [facility] [address] [place] [address] Nurse Practitioner Behavioral Health 10/23/24 documented as of this encounter
--- OUTSIDE RECORDS SUMMARY | 2025-03-21 12:37 | XMS_ITS | Encounter Summary ---
Author Organization [facility] Address [address] [place] [address] Care Team Providers Care Wildlife Conservation Officer Name Role Phone Amelia Moody HOUSE PAINTING INSTRUCTOR Primary Care Provider + [phone] Jeanmarie Gutierrez DO Primary Care Provider [phone] Dinesh Kline DO Unavailable [phone] Sierra Rascon PMHNP- Unavailable [phone] Encounter Details Date Type Department Care Team (Late st Contact Info) Description 03/24/2023 Abstract [facility] [address] [place] [address] Hernandez Gibson, DO [address] [place], [place] [address] Social History Tobacco Use Types Packs/Day Years [...] 04/16/2025 11:30 AM EDT Office Visit [facility] [address] [place] [address] Sierra Rascon, [facility] [address] [facility] [address] [place] [address] 05/16/2025 11:30 AM EDT Office Visit [facility] [address] [place] [address] Abiodun Sierra, [facility] [address] [facility] [address] [place] [address] 06/13/2025 11:30 AM EDT Office Visit [facility] [address] [place] [address] Abiodun Sierra, [facility] [address] [facility] [address] [place] [address] 06/17/2025 8:20 AM EDT Office Visit [facility] [address] [facility] [address] [place] [address] Jeanmarie Gutierrez, [address] [place] [address] 03/25/2026 11:00 AM EDT Office Visit [facility] OB [address] [facility] [place] [address] Hernandez Gibson DO [address] [facility] [place] [address] documented as of this encounter Visit Diagnoses Not on filedocumented in this encounter Care Teams Wildlife Conservation Officer Relationship Specialty Start Date End Date Amelia Moody, HOUSE PAINTING INSTRUCTOR PCP - General 03/09/23 09/03/24 Jeanmarie Gutierrez DO [address] [place] [address] PCP - General Family Medicine 09/04/24 Dinesh Kline DO [address] [place] [address] Development Geologist Pulmonary Disease 10/23/24 Sierra Rascon, KAI- 112 [facility] 160 [place] [address] Nurse Practitioner Behavioral Health 10/23/24 documented as of this encounter
--- OUTSIDE RECORDS SUMMARY | 2025-03-21 12:37 | XMS_ITS | Encounter Summary ---
Author Organization [facility] Address [address] [place] [address] Care Team Providers Care Marine Electronics Repairer Name Role Phone Jeanmarie Gutierrez DO Primary Care Provider + [phone] Dinesh Kline DO Unavailable [phone] RasconGordon chenth [facility]- Unavailable + [phone] Encounter Details Date Type Department Care Team (Late st Contact Info) Description 03/11/2025 Abstract [facility] FM [address] [facility] [address] [place] [address] Jeanmarie Gutierrez DO [address] [facility] [address] [place] [address] Social History Tobacco Use Types Packs/Day Years [...] Industry Job Start Date Job End Date [place] Not on file Not on file Not on file documented as of this encounter Plan of Treatment Upcoming Encounters Date Type Department Care Team (Late st Contact Info) Description 04/16/2025 11:30 AM EDT Office Visit [facility] [address] [place] [address] Sierra Rascon, PMHNP-BC [address] [place] [address] 05/16/2025 11:30 AM EDT Office Visit [facility] [address] [place] [address] Sierra Rascon, PMHNP-BC [address] [facility] [address] [place] [address] 06/13/2025 11:30 AM EDT Office Visit [facility] [address] [place] [address] Sierra Rascon HNP-BC [address] [place] [address] 06/17/2025 8:20 AM EDT Office Visit [facility] [address] [place] [address] Jeanmarie Gutierrez, DO [address] [place] [address] 03/25/2026 11:00 AM EDT Office Visit [facility] OB [address] [place] [address] Hernandez Gibson, DO [address] [facility] [place] [address] documented as of this encounter Visit Diagnoses Not on filedocumented in this encounter Additional Health Concerns Assessment Noted Time PHQ-9 Depression Total Score: 13 12/04/ 025 8:35 AM EDT documented as of this encounter Care Teams Marine Electronics Repairer Relationship Specialty Start Date End Date Jeanmarie Gutierrez DO [address] [place] [address] PCP - General Family Medicine 09/04/24 Dinesh Kline DO [address] [facility] [address] [place] [address] Tobacco Sampler Pulmonary Disease 10/23/24 Sierra Rascon PMHNP- 112 [facility] 160 [place] [address] Nurse Practitioner Behavioral Health 10/23/24 documented as of this encounter
--- OUTSIDE RECORDS SUMMARY | 2025-03-21 12:38 | XMS_ITS | Clinical Summary ---
Author Organization [facility] Address [address] [place] [address] Care Team Providers Care Fourdrinier Machine Operator Name Role Phone Unavailable Primary Care Provider Unavailabl e Social History Tobacco Use Types Packs/Day Years Used Date Smoking Tobacco: Never Assessed Comments Unknown Sex and Gender Information Value Date Recorded Sex Assigned at Not on file Legal Sex Female 9:41 PM EST Gender Identity Not on file Sexual Orientation Not on file Plan of Treatment Not on file
--- OUTSIDE RECORDS SUMMARY | 2025-03-21 12:38 | XMS_ITS | Encounter Summary ---
Author Organization [facility] Address [address] [place] [address] Care Team Providers Care Hand Bender Name Role Phone Jeanmarie Gutierrez DO Primary Care Provider + [phone] Dinesh Kline DO Unavailable [phone] RasconShannan chendith [facility]- Unavailable + [phone] Encounter Details Date Type Department Care Team (Late st Contact Info) Description 01/04/2025 Abstract [facility] FM [address] [facility] [address] [place] [address] Jeanmarie Gutierrez DO [address] [facility] [address] [place] [address] Social History Tobacco Use Types Packs/Day Years [...] Industry Job Start Date Job End Date [place] Not on file Not on file Not on file documented as of this encounter Plan of Treatment Upcoming Encounters Date Type Department Care Team (Late st Contact Info) Description 04/16/2025 11:30 AM EDT Office Visit [facility] [address] [place] [address] Sierra Rascon, PMHNP-BC [address] [place] [address] 05/16/2025 11:30 AM EDT Office Visit [facility] [address] [place] [address] Sierra Rascon, PMHNP-BC [address] [facility] [address] [place] [address] 06/13/2025 11:30 AM EDT Office Visit [facility] [address] [place] [address] Sierra Rascon HNP-BC [address] [place] [address] 06/17/2025 8:20 AM EDT Office Visit [facility] [address] [place] [address] Jeanmarie Gutierrez, DO [address] [place] [address] 03/25/2026 11:00 AM EDT Office Visit [facility] OB [address] [facility] [place] [address] Hernandez Gibson, DO [address] [facility] [place] [address] documented as of this encounter Visit Diagnoses Not on filedocumented in this encounter Additional Health Concerns Assessment Noted Time PHQ-9 Depression Total Score: 13 12/04/ 025 8:35 AM EDT documented as of this encounter Care Teams Hand Bender Relationship Specialty Start Date End Date Jeanmarie Gutierrez DO [address] [place] [address] PCP - General Family Medicine 09/04/24 Dinesh Kline DO [address] [facility] [address] [place] [address] Pharmacovigilance Specialist Pulmonary Disease 10/23/24 Sierra Rascon PMHNP- 112 [facility] [address] [place] [address] Nurse Practitioner Behavioral Health 10/23/24 documented as of this encounter
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
--- OUTSIDE RECORDS SUMMARY | 2025-03-21 12:38 | XMS_ITS | Clinical Summary ---
Author Organization [employer] Address [id number] [address] [place] [address] Care Team Providers Care Senior Mainframe Programmer Analyst Name Role Phone Amelia Moody DNP Primary Care Provider [phone] Allergies Active Allergy Reactions Criticality Noted Date Comments Lurasidone Other (See Comments) 10/23/2024 Suicidal thoughts Risperidone 06/08/2021 Medications cholecalcifero l, vitamin D3, (VITAMIN D3) 25 mcg (1,000 unit) capsule Take 1 capsule (1,000 Units total) by mouth in the morning. Active ondansetron (ZOFRAN) 4 mg tablet Take 1 tablet (4 mg total) by mouth every 8 (eight) hours as needed for nausea or vomiting. Activ e budesonide (PULMICORT FLEXHALER) 90 mcg/actuation inhaler Inhale 1 puff in the morning and 1 puff before bedtime. Active albuterol (PROVENTIL HFA) 90 mcg/actuation inhaler Inhale 2 puffs every 4 (four) hours as needed for wheezing. Active INVEGA SUSTENNA 234 mg/1.5 mL syringe Inject 1.5 mL (234 mg total) into the appropriate muscle. INJECT 234MG INTRAMUSCULARLY INTO THE SHOULDER, THIGH OR BUTTOCKS 1 TIME FOR 1 DOSE. BRING IN TO THE OFFICE TO RECEIVE 234MG INJECTION ON DAY 1 & THEN THE 156MG DOSE ON DAY 8 10/25/19 25 Active levonorgestreL (MIRENA) 21 mcg/24hr (up to 8 yrs) 52 mg IUD by intrauterine route. Active metFORMIN XR (GLUCOPHAGE XR) 500 mg 24 hr tablet Take 1 tablet (500 mg total) by mouth nightly. Active pantoprazole (PROTONIX) 40 mg EC tablet Take 1 tablet (40 mg total) by mouth every morning before breakfast. 10/30/19 25 Active sucralfate (CARAFATE) 1 gram tablet Take 1 tablet (1 g total) by mouth in the morning and 1 tablet (1 g total) at noon and 1 tablet (1 g total) in the evening and 1 tablet (1 g total) before bedtime. 10/30/19 25 Active Active Problems Problem Noted Date Diagnosed Date Oral hypoglycemic controlled White classification A2 gestational diabetes mellitus (GDM) 09/04/2021 Essential hypertension affec ting in second trimester 06/26/2021 History of loop electrosurgi moy excision procedure (LEEP) of cervix affecting in first trimester 06/26/2021 Obesity Encounters Date Type Department Care Team Description 02/19/2025 9:00 AM EDT Support Visit [facility] Dieticians [address] [place] [address] [address] [place] [address] Briseida Santos LD Pre-bariatric surgery nutrition evaluation (Primary Dx); Morbid obesity ([facility] Essential hypertension affecting in second trimester 02/19/2025 Orders Only [facility] General Surgery-[facility]ric [address] [place] [address]. [address] [place] [address] Allyson Soto RN Unable to assess patient's smoking status within the last 12 months (Primary Dx) 02/19/2025 Travel 01/25/2025 9:16 AM EDT - 01/25/2025 11:59 PM EDT Hospital Encounter [facility] - Radiology Imaging [address] [place] [address] [address] [place] [phone] Morbid obesity ([facility]) Discharge Disposition: Home 01/22/2025 11:30 AM EDT Support Visit [facility] Dietic[facility] [address] [place] [address] [address] [place] [address] Briseida Santos LD Pre-bariatric surgery nutrition evaluation (Primary Dx); Morbid obesity ([facility]); Essential hypertension affecting in second trimester 01/22/2025 Travel from Last 3 Months Family History Medical History Relation Name Comments Asthma Father Blood Clots Father Hypertension Father Asthma Maternal Grandfather Hypertension Mother Mental illness Mother Heart disease Paternal Grandfather Hypertension Paternal Grandfather Asthma Paternal Grandmother Cancer Paternal Grandmother Diabetes Paternal Grandmother Hypertension Paternal Grandmother Relation Name Status Comments Father Maternal Grandfather Mother Paternal Grandfather Paternal Grandmother Social History Tobacco Use Types Packs/Day Years Used Date Smoking Tobacco: Never Smokeless Tobacco: Never Alcohol Use Standard Drinks/Week Comments Yes 0 (1 standard drink = 0.6 oz pur e alcohol) rarely Hunger Screening Answer Date Recorded Within the past 12 months we worried whether our food would run out before we got money to buy more. Never True 12/07/2024 Within the past 12 months th e food we bought just didn't last and we didn't have money to get more. Never True 12/07/2024 Comments No Sex and Gender Information Value Date Recorded Sex Assigned at Female 07/30/2021 6:31 AM EST Legal Sex Female 10:17 AM EDT Gender Identity Female 07/30/2021 6:31 AM EST Sexual Orientation Straight 07/30/2021 6: 31 AM EST Last Filed Vital Signs Vital Sign Reading Time Taken Comments Blood Pressure 145/96 12/07/2024 10:56 AM EDT Pulse 78 12/07/2024 10:56 AM EDT Temperature - - Respiratory Rate - - Oxygen Saturation - - Inhaled Oxygen Concentration - - Weight 146.8 kg (323 lb 11.2 oz) 02/19/2025 9:00 AM EDT Height 165.1 cm (5' 5 ) 12/18/2024 8:07 AM EDT Body Mass Index 53.87 12/18/2024 8:07 AM EDT Plan of Treatment Health Maintenance Due Date Last Done Comments Depression Screening 2002 DTaP,Tdap and Td Vaccines (5 - Tdap) 04/30/2003 04/29/2003, 01/02/1996, 06/28/1995, Additional history exists COVID-19 Vaccine (2023-2 5 season) 2024 02/18/2021, 01/21/2021 Influenza Vaccine 05/20/2025 Tobacco Screening 12/07/2025 12/07/2024 Adult BMI Follow Up Plan 12/18/2025 12/18/2024 Adult BMI Screening 02/19/2026 02/19/2025 Pap Smear 03/13/2027 03/13/2024, 03/09/2023 Medical Devices Not on file Procedures Procedure Name Priority Date/Time Associated Diagnosis Comments NICOTINE AND METABOLITES, RANDOM, URINE Routine 02/19/2025 10:12 AM EDT Unable to assess patient's smoking status within the last 12 months FL UGI WITH ESOPHAGUS Routine 01/25/2025 9:24 AM EDT Morbid obesity ([facility]) from Last 3 Months Results * Nicotine and Metabolites, Random, Urine (02/19/2025 10:12 AM EDT) NICOTINE <5.0 <5.0 ng/mL 02/22/2025 11:49 PM EDT [facility] COTININE <5.0 <5.0 ng/mL 02/22/2025 11:49 PM EDT [facility] NORNICOTINE <2.0 <2.0 ng/mL 02/22/2025 11:49 PM EDT [facility] ANABASINE <2.0 <2.0 ng/mL 02/22/2025 11:49 PM EDT [facility] Comment: ADDITIONAL INFORMATION This test was developed and its performance characteristics determined by [facility] in a manner consistent with CLIA requirements. This test has not been cleared or approved by the U.S. Food and Drug Administration. Test Performed by: [facility] [address] [place] [address] Nocturnist: Sushma Cardona Ph.D.; CLIA# [id number] Urine Collection / Unknown 02/19/2025 10:12 AM EDT 02/19/2025 10:12 AM EDT us Eduarda Hugo MD URINE ORDERABLES Final Result [facility] [address] [place] [address], [place] * Fluoroscopy upper GI with esophagus (01/25/2025 9:24 AM EDT) Anatomical Region Laterality Modality Abdomen, Body Radio Fluoroscop y 01/25/2025 11:4 8 AM EDT Narrative 01/25/2025 11:49 AM EDT FL UGI WITH ESOPHAGUS Clinical history:Morbid obesity ([facility]) Comparison: None. Findings: Double contrast biphasic evaluation of the upper gastrointestinal system was performed. Swallowing function is unremarkable. Normal course and configuration esophagus. The gastric fundus, body and antrum are unremarkable. Normal course and configuration of the duodenum. Mild spontaneous gastroesophageal reflux. Reference air kerma was 44.98 mGy. Impression: Mild spontaneous gastroesophageal reflux. Otherwise, unremarkable evaluation of the upper gastrointestinal system. Finalized by Otf Hernandez MD on 01/25/2025 11:49 AM Procedure Note Otf Hernandez MD - 01/25/2025 FL UGI WITH ESOPHAGUS Clinical history:Morbid obesity ([facility]) Comparison: None. Findings: Double contrast biphasic evaluation of the upper gastrointestinal systemwas performed. Swallowing function is unremarkable. Normal course andconfiguration esophagus. The gastric fundus, body and antrum areunremarkable. Normal course and configuration of the duodenum. Mildspontaneous gastroesophageal reflux. Reference air kerma was 44.98 mGy. Impression: Mild spontaneous gastroesophageal reflux. Otherwise, unremarkableevaluation of the upper gastrointestinal system. Finalized by Otf Hernandez MD on 01/25/2025 11:49 AM Eduarda Hugo MD IMG FLUOROSCOPY ORDERABLES Ivette l Result from Last 3 Months Insurance [facility] MEDICAID [place] [facility] Care Teams Senior Mainframe Programmer Analyst Relationship Specialty Start Date End Date Amelia Moody, DERIAN [address] [place] [address] PCP - General Nurse Practitioner 06/26/21
--- OUTSIDE RECORDS SUMMARY | 2025-03-21 12:38 | XMS_ITS | Encounter Summary ---
Author Organization [facility] Address [address] [place] [address] Care Team Providers Care Education Professional Name Role Phone Jeanmarie Gutierrez DO Primary Care Provider + [phone] Dinesh Kline DO Unavailable [phone] RasconGordon chenth [facility]- Unavailable + [phone] Encounter Details Date Type Department Care Team (Late st Contact Info) Description 02/07/2025 Abstract [facility] [address] [facility] [address] [place] [address] Jeanmarie Gutierrez DO [address] [facility] [address] [place] [address] Social History Tobacco Use Types Packs/Day Years [...] Industry Job Start Date Job End Date [place] Not on file Not on file Not on file documented as of this encounter Plan of Treatment Upcoming Encounters Date Type Department Care Team (Late st Contact Info) Description 04/16/2025 11:30 AM EDT Office Visit [facility] [address] [place] [address] Sierra Rascon, PMHNP-BC [address] [place] [address] 05/16/2025 11:30 AM EDT Office Visit [facility] [address] [place] [address] Sierra Rascon, PMHNP-BC [address] [facility] [address] [place] [address] 06/13/2025 11:30 AM EDT Office Visit [facility] [address] [place] [address] Sierra Rascon HNP-BC [address] [place] [address] 06/17/2025 8:20 AM EDT Office Visit [facility] [address] [place] [address] Jeanmarie Gutierrez, DO [address] [place] [address] 03/25/2026 11:00 AM EDT Office Visit [facility] OB [address] [place] [address] Hernandez Gibson, DO [address] [facility] [address] [place] [address] documented as of this encounter Visit Diagnoses Not on filedocumented in this encounter Additional Health Concerns Assessment Noted Time PHQ-9 Depression Total Score: 13 12/04/ 025 8:35 AM EDT documented as of this encounter Care Teams Education Professional Relationship Specialty Start Date End Date Jeanmarie Gutierrez DO [address] [place] [address] PCP - General Family Medicine 09/04/24 Dinesh Kline DO [address] [facility] [address] [place] [address] Char Dust Cleaner And Salvager Pulmonary Disease 10/23/24 Sierra Rascon PMHNP- [address] [facility] [address] [place] [address] Nurse Practitioner Behavioral Health 10/23/24 documented as of this encounter
--- OUTSIDE RECORDS SUMMARY | 2025-03-21 12:38 | XMS_ITS | Encounter Summary ---
Author Organization [facility] Address [address] [place] [address] Care Team Providers Care Income Tax Advisor Name Role Phone Jeanmarie Gutierrez DO Primary Care Provider + [phone] Dinesh Kline DO Unavailable [phone] Abiodun Sierra [facility]- Unavailable + [phone] Encounter Details Date Type Department Care Team (Late st Contact Info) Description 01/31/2025 Abstract [facility] [address] [facility] [place] [address] Rosario Champagne MA Social History Tobacco Use Types Packs/Day Years [...] Industry Job Start Date Job End Date [place] Not on file Not on file Not on file documented as of this encounter Plan of Treatment Upcoming Encounters Date Type Department Care Team (Late st Contact Info) Description 04/16/2025 11:30 AM EDT Office Visit [facility] [address] [place] [address] Sierra Rascon, PMHNP-BC [address] [place] [address] 05/16/2025 11:30 AM EDT Office Visit [facility] [address] [place] [address] Sierra Rascon, PMHNP-BC [address] [place] [address] 06/13/2025 11:30 AM EDT Office Visit [facility] [address] [place] [address] Sierra Rascon, PMHNP-BC [address] [place] [address] 06/17/2025 8:20 AM EDT Office Visit [facility] [address] [place] [address] Jeanmarie Gutierrez DO [address] [place] [address] 03/25/2026 11:00 AM EDT Office Visit [facility] OB [address] [facility] [place] [address] Hernandez Gibson DO [address] [facility] [address] [place], [place] [id number] documented as of this encounter Visit Diagnoses Not on filedocumented in this encounter Additional Health Concerns Assessment Noted Time PHQ-9 Depression Total Score: 13 12/04/2 025 8:35 AM EDT documented as of this encounter Care Teams Income Tax Advisor Relationship Specialty Start Date End Date Jeanmarie Gutierrez DO [address] [facility] [address] [place] [address] PCP - General Family Medicine 09/04/24 Dinesh Kline DO [address] [facility] [address] [place] [address] Retinal Surgeon Pulmonary Disease 10/23/24 Sierra Rascon PMHNP- [address] [facility] [address] [place] [address] Nurse Practitioner Behavioral Health 10/23/24 documented as of this encounter
--- OUTSIDE RECORDS SUMMARY | 2025-03-21 12:38 | XMS_ITS | Encounter Summary ---
Author Organization [facility] Address [address] [place] [address] Care Team Providers Care Rental Sales Associate Name Role Phone Jeanmarie Gutierrez DO Primary Care Provider + [phone] Dinesh Kline DO Unavailable [phone] AbiodunShannanSierra [facility]- Unavailable + [phone] Encounter Details Date Type Department Care Team (Late st Contact Info) Description 01/22/2025 Abstract [facility] [address] [place] [address] Hernandez Gibson DO [address] [place], [place] [address] Social History Tobacco Use Types Packs/Day Years [...] Industry Job Start Date Job End Date [place] Not on file Not on file Not on file documented as of this encounter Plan of Treatment Upcoming Encounters Date Type Department Care Team (Late st Contact Info) Description 04/16/2025 11:30 AM EDT Office Visit [facility] [address] [place] [address] Sierra Rascon, PMHNP-BC [address] [place] [address] 05/16/2025 11:30 AM EDT Office Visit [facility] [address] [place] [address] Sierra Rascon, HNP-BC [address] [place] [address] 06/13/2025 11:30 AM EDT Office Visit [facility] [address] [place] [address] Sierra Rascon, HNP-BC [address] [place] [address] 06/17/2025 8:20 AM EDT Office Visit [facility] [address] [place] [address] Jeanmarie Gutierrez, DO [address] [place] [address] 03/25/2026 11:00 AM EDT Office Visit [facility] OB [address] [place] [address] Hernandez Gibson DO [address] [facility] [place] [address] documented as of this encounter Visit Diagnoses Not on filedocumented in this encounter Additional Health Concerns Assessment Noted Time PHQ-9 Depression Total Score: 13 025 8:35 AM EDT documented as of this encounter Care Teams Rental Sales Associate Relationship Specialty Start Date End Date Jeanmarie Gutierrez DO [address] [place] [address] PCP - General Family Medicine 09/04/24 Dinesh Kline DO [address] [place] [address] Machine Precision Engraver Pulmonary Disease 10/23/24 Sierra Rascon PMHNP- [address] [place] [address] [address] [place] [address] Nurse Practitioner Behavioral Health 10/23/24 documented as of this encounter
--- OUTSIDE RECORDS SUMMARY | 2025-03-21 12:38 | XMS_ITS | Encounter Summary ---
Author Organization [facility] Address [address] [place] [address] Care Team Providers Care Assistant Technician Name Role Phone Jeanmarie Gutierrez DO Primary Care Provider + [phone] Dinesh Kline DO Unavailable [phone] RasconGordon chenth [facility]- Unavailable + [phone] Encounter Details Date Type Department Care Team (Late st Contact Info) Description 01/09/2025 Abstract [facility] FM [address] [facility] [address] [place] [address] Jeanmarie Gutierrez DO [address] [facility] [address] [place] [address] Social History Tobacco Use Types Packs/Day Years [...] Industry Job Start Date Job End Date [place] Not on file Not on file Not on file documented as of this encounter Plan of Treatment Upcoming Encounters Date Type Department Care Team (Late st Contact Info) Description 04/16/2025 11:30 AM EDT Office Visit [facility] [address] [place] [address] Sierra Rascon, PMHNP-BC [address] [place] [address] 05/16/2025 11:30 AM EDT Office Visit [facility] [address] [place] [address] Sierra Rascon, PMHNP-BC [address] [facility] [address] [place] [address] 06/13/2025 11:30 AM EDT Office Visit [facility] [address] [place] [address] Sierra Rascon HNP-BC [address] [place] [address] 06/17/2025 8:20 AM EDT Office Visit [facility] [address] [place] [address] Jeanmarie Gutierrez, DO [address] [place] [address] 03/25/2026 11:00 AM EDT Office Visit [facility] OB [address] [facility] [place] [address] Hernandez Gibson, DO [address] [facility] [place] [address] documented as of this encounter Visit Diagnoses Not on filedocumented in this encounter Additional Health Concerns Assessment Noted Time PHQ-9 Depression Total Score: 13 12/04/ 025 8:35 AM EDT documented as of this encounter Care Teams Assistant Technician Relationship Specialty Start Date End Date Jeanmarie Gutierrez DO [address] [place] [address] PCP - General Family Medicine 09/04/24 Dinesh Kline DO [address] [facility] [address] [place] [address] Non Acoustic Operator Pulmonary Disease 10/23/24 Sierra Rascon PMHNP- [address] [facility] 160 [place] [address] Nurse Practitioner Behavioral Health 10/23/24 documented as of this encounter
--- OUTSIDE RECORDS SUMMARY | 2025-03-21 12:38 | XMS_ITS | Clinical Summary ---
Author Organization [facility] Address [address] [place] [address] Phone Care Team Providers Care Final Inspector Movement Assembly Name Role Phone Unavailable Primary Care Provider Unavailabl e Social History Tobacco Use Types Packs/Day Years Used Date Smoking Tobacco: Never Assessed Comments Unknown Sex and Gender Information Value Date Recorded Sex Assigned at Not on file Legal Sex Female 8:36 PM EST Gender Identity Not on file Sexual Orientation Not on file Plan of Treatment Health Maintenance Due Date Last Done Comments HIV Screening 1990 Lipid Panel 1990 MMR Vaccines (1 of 1 - Standard series) 1991 Varicella Vaccines (1 of 2 - 13+ 2-dose series) 2003 Hepatitis C Screening 01/17/2008 Hepatitis B Vaccines (1 of 3 - 19+ 3-dose series) 2009 HPV/Cotest 2011 DTaP/Tdap/Td Vaccines (1 - Tdap) 01/17/2012 Yearly Adult Physical 03/25/2021 03/24/2020 Cervical Cancer Screening 01/07/2023 Pap Smear 01/07/2023 01/08/2020, 09/05/2019 COVID-19 Vaccine ( - 2023-2 5 season) 2024 Influenza Vaccine (Season Ended) 2025 Zoster Vaccines (1 of 2) 01/17/2040 HIB Vaccines Aged Out No longer eligi ble based on patient's age to complete this topic HPV Vaccines (No Doses Required) Completed Hepatitis A Vaccines Aged Out No long er eligible based on patient's age to complete this topic IPV Vaccines Aged Out No longer eligi ble based on patient's age to complete this topic Meningococcal Vaccine Aged Out No filomena stephani eligible based on patient's age to complete this topic Pneumococcal Vaccine: Pediatrics and At-Risk Adult Patients Aged Out No longer eligible b ased on patient's age to complete this topic Rotavirus Vaccines Aged Out No longer eligible based on patient's age to complete this topic Insurance [employer]
--- OUTSIDE RECORDS SUMMARY | 2025-03-21 12:38 | XMS_ITS | Clinical Summary ---
Author Organization [facility] Address [address] [place], [place] [address] Care Team Providers Care Service Or Work Dispatcher Chief Name Role Phone Marker, Barbra Baron Primary Care Provider + [phone] Amelia Moody RAILROAD CAR REPAIR SUPERVISOR Unavailable [phone] Social History Tobacco Use Types Packs/Day Years Used Date Smoking Tobacco: Never Assessed Comments Unknown Sex and Gender Information Value Date Recorded Sex Assigned at Not on file Legal Sex Female 1:03 PM EST Gender Identity Not on file Sexual Orientation Not on file Plan of Treatment Health Maintenance Due Date Last Done Comments Anxiety Screening 01/17/2008 Depression Screening 01/17/2008 HIV Screening 01/17/2008 Hepatitis C Screening 01/17/2008 DTaP,Tdap,Td Vaccine (1 - Tdap) 2009 Hepatitis B Vaccine (1 of 3 - 19+ 3-dose series) 01/16 Cervical Cancer Screening 2011 Covid-19 Vaccine ( season) 2024 Influenza Vaccine (#1) 2025 Insurance [employer] Care Teams Service Or Work Dispatcher Chief Relationship Specialty Start Date End Date Barbra Ayala [address] [place] [address] PCP - General Emergency Medicine 11/12/13 Amelia Moody, RAILROAD CAR REPAIR SUPERVISOR [address] [place] [address] Referring Family Medicine 04/26/19
[2025-03-26 16:08] LABS: Age Gdln ACOG Testing Note (.); IGP, Aptima HPV, rfx 16/18,45 Note (.)
== END 2025-03-21 12:29 | disposition home or self-care (01) ==
LOC: LAB 12:28
PROVIDERS: PCP Nurse Practitioner Family; Visit Provider Obstetrics & Gynecology
DX: Z01.419 Encounter for gynecological examination (general) (routine) without abnormal findings (principal)
CPT/HCPCS: 87624; 88175